=== PATIENT | male | born 1975 | race American Indian/Alaskan Native ===

== ENCOUNTER 2019-12-15 13:36 | Inpatient (IN) | payer MEDICAID ==
[2019-12-15 18:39] LABS: Basophils % (Auto) 0.6 % (0.0-1.8); Eosinophils # (Auto) 0.2 K/mm3 (0.0-0.4); Eosinophils % (Auto) 2.9 % (0.0-4.3); Hematocrit 28.1 % (35.5-45.6); Hemoglobin 9.4 gm/dl (11.8-15.2); Lymphocytes # (Auto) 1.5 K/mm3 (1.2-5.4); Lymphocytes % (Auto) 17.9 % (13.4-35.0); Mean Corpuscular HGB Conc 34 % (32-34); Mean Corpuscular Volume 90 fl (84-94); Monocytes # (Auto) 0.9 K/mm3 (0.0-0.8); Monocytes % (Auto) 10.9 % (0.0-7.3); Platelet Count 349 K/mm3 (140-440); Red Blood Count 3.12 M/mm3 (3.65-5.03); Red Cell Distribution Width 15.4 % (13.2-15.2)
--- NOTE | 2019-12-15 19:07 | Emergency Department Report ---
ED Shortness of Breath HPI - General Chief Complaint: Recheck/Abnormal Lab/Rx Stated Complaint: STARTING DIALYSIS Time Seen by Provider: 12/15/19 17:59 Source: patient Mode of arrival: Ambulatory Limitations: No Limitations - History of Present Illness Initial Comments: CC: "I need dialysis." HPI: Mr. Bahena is a 60-year-old male with history of diabetes mellitus, hypertension, end-stage renal disease who presents with shortness of breath leg swelling. He was evaluated by his primary rice drier operator Dr. Penny this morning. Outpatient chest radiograph was unremarkable according to his report. He was instructed to go to the emergency department for hemodialysis. Dialysis graft was planned to be inserted to his right arm on tomorrow. He does not have dialysis access. He denies nausea. He has mild headache. Denies chest pain. MD Complaint: shortness of breath -: Gradual, days(s) (Several days) Severity: moderate Consistency: constant Improves With: rest Worsens With: exertion Known History Of: other (End-stage renal disease) Context: other (Evaluated by rice drier operator today. History of end-stage renal disease.) - Related Data Home Medications Medication Instructions Recorded Confirmed Last Taken Gabapentin [Neurontin] 100 mg PO Q8HR 12/14/19 12/14/19 Unknown amLODIPine [Norvasc] 10 mg PO DAILY 12/14/19 12/14/19 Unknown Allergies Allergy/AdvReac Type Severity Reaction Status Date / Time No Known Allergies Allergy Unverified 12/14/19 11:41 ED Review of Systems ROS: Stated complaint: STARTING DIALYSIS Other details as noted in HPI Comment: All other systems reviewed and negative Constitutional: denies: fever Respiratory: shortness of breath. denies: cough Cardiovascular: denies: chest pain Gastrointestinal: denies: abdominal pain, nausea, vomiting Neurological: headache ED Past Medical Hx - Past Medical History Previous Medical History?: Yes Hx Hypertension: Yes Hx Diabetes: Yes Hx GERD: Yes Hx Renal Disease: Yes Hx Headaches / Migraines: Yes (Migraines) - Social History Smoking Status: Former Smoker - Medications Home Medications: Home Medications Medication Instructions Recorded Confirmed Last Taken Type Gabapentin [Neurontin] 100 mg PO Q8HR 12/14/19 12/14/19 Unknown History amLODIPine [Norvasc] 10 mg PO DAILY 12/14/19 12/14/19 Unknown History ED Physical Exam - General Limitations: No Limitations General appearance: alert, in no apparent distress - Head Head exam: Present: atraumatic, normocephalic - Eye Eye exam: Present: normal appearance - ENT ENT exam: Present: mucous membranes moist - Neck Neck exam: Present: normal inspection, full ROM - Respiratory Respiratory exam: Present: normal lung sounds bilaterally, other (Diminished lung sounds right lung base posterior region of the thorax). Absent: wheezes, rales, rhonchi - Cardiovascular Cardiovascular Exam: Present: regular rate, normal rhythm, normal heart sounds. Absent: systolic murmur, diastolic murmur, rubs, gallop - GI/Abdominal GI/Abdominal exam: Present: soft, normal bowel sounds. Absent: distended, tenderness, guarding, rebound - Rectal Rectal exam: Present: deferred - Extremities Exam Extremities exam: Present: pedal edema - Neurological Exam Neurological exam: Present: alert, oriented X3 - Psychiatric Psychiatric exam: Present: normal affect, normal mood - Skin Skin exam: Present: warm, dry, intact, normal color. Absent: rash ED Course Vital Signs 12/15/19 14:33 Pulse Rate 84 Respiratory 18 Rate Blood Pressure 153/82 O2 Sat by Pulse 100 Oximetry ED Medical Decision Making - Lab Data Result diagrams: 12/15/19 18:05 12/15/19 18:05 Laboratory Results - last 24 hr 12/15/19 12/15/19 18:05 18:05 WBC 8.4 RBC 3.12 L Hgb 9.4 L Hct 28.1 L MCV 90 MCH 30 MCHC 34 RDW 15.4 H Plt Count 349 Lymph % (Auto) 17.9 [place] % (Auto) 10.9 H Eos % (Auto) 2.9 Baso % (Auto) 0.6 Lymph # (Auto) 1.5 [place] # (Auto) 0.9 H Eos # (Auto) 0.2 Baso # (Auto) 0.0 Seg Neutrophils % 67.7 Seg Neutrophils # 5.7 Sodium 136 L Potassium 4.7 Chloride 103.1 Carbon Dioxide 13 L Anion Gap 25 BUN 84 H Creatinine 13.0 H Estimated GFR 5 BUN/Creatinine Ratio 6 Glucose 130 H Calcium 8.0 L - Radiology Data Radiology results: report reviewed, image reviewed Chest radiograph: Possible small bilateral effusions versus atelectasis. - Medical Decision Making Mr. Bahena presents with uremic complications: Hypervolemia, acidosis. Symptomatically he has shortness of breath and lower extremity swelling. I consulted Dr. Gan rice drier operator on-call for Dr. Penny who recommended [facility] for urgent dialysis. I consulted vascular surgeon Dr. Isacc De León for vascular access. Patient is admitted to the hospital service. Critical care attestation.: If time is entered above; I have spent that time in minutes in the direct care of this critically ill patient, excluding procedure time. ED Disposition Clinical Impression: End stage renal disease, Hypervolemia, Metabolic acidosis Disposition: OP ADMIT IP TO THIS HOSP Is pt being admited?: Yes Does the pt Need Aspirin: No Condition: Stable
--- NOTE | 2019-12-15 19:09 | XRay Report ---
CHEST 1 VIEW 6:55 PM INDICATION: dyspnea. COMPARISON: Earlier the same day FINDINGS: Support devices: None. Heart: Stable. Lungs/Pleura: Previously seen predominantly perihilar opacities have improved. No significant effusio n. No pneumothorax. IMPRESSION: 1. Interval improvement. Signer Name: Chris Barrios MD Signed: 12/15/2019 7:05 PM Workstation Name: [id number]
--- NOTE | 2019-12-15 23:55 | History and Physical Report ---
History of Present Illness Date of examination: 12/15/19 Date of admission: 12/15/19 19:07 Chief complaint: Increasing swelling of both the legs and shortness of breath for 1 week History of present illness: 44-year-old male with history of hypertension diabetes and chronic kidney disease comes in for increasing shortness of breath and swelling of both lower extremities. Patient went to his carbon brusher assembler Dr. Penny this morning and because of his shortness of breath and swelling in both lower extremities patient was sent to the emergency room for evaluation. Patient has orthopnea. Patient has shortness of breath on minimal exertion. No chest pain. Patient has chronic kidney disease which was diagnosed about 6 months ago and has been following with nephrology on a regular basis. Worsening creatinine and kidney function. In the emergency room patient had swelling of both lower extremities and a high creatinine of around 13. No fever or chills. Exercise is a exacerbating factor and rest is a relieving factor - Past Medical History Previous Medical History?: Yes Hypertension: Yes Diabetes: Yes GERD: Yes Renal Disease: Yes Headaches / Migraines: Yes (Migraines) - Social History Smoking Status: Former Smoker Surgical history none Family history Hypertension - Medications Home Medications: Home Medications Medication Instructions Recorded Confirmed Last Taken Type Gabapentin [Neurontin] 100 mg PO Q8HR 12/14/19 12/14/19 Unknown History amLODIPine [Norvasc] 10 mg PO DAILY 12/14/19 12/14/19 Unknown History Review of Systems ROS: Stated complaint: STARTING DIALYSIS Other details as noted in HPI Comment: All other systems reviewed and negative Constitutional: denies: fever Respiratory: shortness of breath. denies: cough Cardiovascular: denies: chest pain Gastrointestinal: denies: abdominal pain, nausea, vomiting Neurological: headache Medications and Allergies Allergies Allergy/AdvReac Type Severity Reaction Status Date / Time No Known Allergies Allergy Unverified 12/14/19 11:41 Home Medications Medication Instructions Recorded Confirmed Last Taken Type Gabapentin [Neurontin] 100 mg PO Q8HR 12/14/19 12/15/19 12/15/19 History amLODIPine [Norvasc] 10 mg PO DAILY 12/14/19 12/15/19 12/15/19 History Exam - Constitutional Vitals: Temp Pulse Resp BP Pulse Ox 89 15 161/86 100 12/15/19 19:16 12/15/19 19:16 12/15/19 19:16 12/15/19 19:16 General appearance: Present: no acute distress, mild distress, well-nourished - EENT Eyes: Present: PERRL ENT: hearing intact, clear oral mucosa - Neck Neck: Present: supple, normal ROM - Respiratory Respiratory effort: normal Respiratory: bilateral: CTA - Cardiovascular Heart rate: 88 Rhythm: regular Heart Sounds: Present: S1 & S2. Absent: rub, click - Extremities Extremities: pulses symmetrical Extremity abnormal: edema (3+ pedal edema) Peripheral Pulses: within normal limits - Abdominal General gastrointestinal: Present: soft, non-tender, non-distended, normal bowel sounds Male genitourinary: Present: normal - Integumentary Integumentary: Present: clear, warm, dry - Musculoskeletal Musculoskeletal: gait normal, strength equal bilaterally - Psychiatric Psychiatric: appropriate mood/affect, intact judgment & insight - Neurologic Neurologic: CNII-XII intact, moves all extremities HEART Score - HEART Score History: Moderately suspicious Age: < 45 Risk factors: 1-2 risk factors Troponin: 1-3x normal limit - Critical Actions Critical Actions: 4-6 pts:12-16.6% risk of adverse cardiac event. Should be admitted Results - Labs CBC & Chem 7: 12/15/19 18:05 12/15/19 18:05 Labs: Laboratory Last Values WBC 8.4 K/mm3 (4.5-11.0) 12/15/19 18:05 RBC 3.12 M/mm3 (3.65-5.03) L 12/15/19 18:05 Hgb 9.4 gm/dl (11.8-15.2) L 12/15/19 18:05 Hct 28.1 % (35.5-45.6) L 12/15/19 18:05 MCV 90 fl (84-94) 12/15/19 18:05 MCH 30 pg (28-32) 12/15/19 18:05 MCHC 34 % (32-34) 12/15/19 18:05 RDW 15.4 % (13.2-15.2) H 12/15/19 18:05 Plt Count 349 K/mm3 (140-440) 12/15/19 18:05 Lymph % (Auto) 17.9 % (13.4-35.0) 12/15/19 18:05 [place] % (Auto) 10.9 % (0.0-7.3) H 12/15/19 18:05 Eos % (Auto) 2.9 % (0.0-4.3) 12/15/19 18:05 Baso % (Auto) 0.6 % (0.0-1.8) 12/15/19 18:05 Lymph # (Auto) 1.5 K/mm3 (1.2-5.4) 12/15/19 18:05 [place] # (Auto) 0.9 K/mm3 (0.0-0.8) H 12/15/19 18:05 Eos # (Auto) 0.2 K/mm3 (0.0-0.4) 12/15/19 18:05 Baso # (Auto) 0.0 K/mm3 (0.0-0.1) 12/15/19 18:05 Seg Neutrophils % 67.7 % (40.0-70.0) 12/15/19 18:05 Seg Neutrophils # 5.7 K/mm3 (1.8-7.7) 12/15/19 18:05 Sodium 136 mmol/L (137-145) L 12/15/19 18:05 Potassium 4.7 mmol/L (3.6-5.0) 12/15/19 18:05 Chloride 103.1 mmol/L (98-107) 12/15/19 18:05 Carbon Dioxide 13 mmol/L (22-30) L 12/15/19 18:05 Anion Gap 25 mmol/L 12/15/19 18:05 BUN 84 mg/dL (9-20) H 12/15/19 18:05 Creatinine 13.0 mg/dL (0.8-1.3) H 12/15/19 18:05 Estimated GFR 5 ml/min 12/15/19 18:05 BUN/Creatinine Ratio 6 % 12/15/19 18:05 Glucose 130 mg/dL (75-100) H 12/15/19 18:05 POC Glucose 141 mg/dL (70-105) H 12/15/19 21:43 Calcium 8.0 mg/dL (8.4-10.2) L 12/15/19 18:05 Short CBC 12/15/19 Range/Units 18:05 WBC 8.4 (4.5-11.0) K/mm3 Hgb 9.4 L (11.8-15.2) gm/dl Hct 28.1 L (35.5-45.6) % Plt Count 349 (140-440) K/mm3 [facility] 12/15/19 18:05 Sodium 136 L Potassium 4.7 Chloride 103.1 Carbon Dioxide 13 L BUN 84 H Creatinine 13.0 H Glucose 130 H Calcium 8.0 L - Imaging and Cardiology EKG: report reviewed (Sinus rhythm heart rate of 90/min no acute ST-T wave cordova es LVH by voltage criteria) Chest x-ray: report reviewed Imaging and Cardiology: Chest x-ray Previously seen predominantly perihilar opacities are improved. No significant effusion. No pneumothorax. Impression interval improvement. Dee/IV: Voiding Method Toilet IV Catheter Type [Right Hand] INT / Saline Lock Assessment and Plan Advance Directives: Yes (Full code) VTE prophylaxis?: Chemical Plan of care discussed with patient/family: Yes - Patient Problems (1) Acute exacerbation of CHF (congestive heart failure) Current Visit: Yes Status: Acute Qualifiers: Heart failure type: diastolic Qualified Code(s): I50.33 - Acute on chronic diastolic (congestive) heart failure Plan to address problem: Secondary to volume overload Echocardiogram for ejection fraction IV Lasix for now Patient is still urinating Creatinine is very high Needs Vas-Cath and increase ultrafiltration for volume removal (2) End stage renal disease Current Visit: Yes Status: Chronic Plan to address problem: Patient is in end-stage renal disease Needs a Vas-Cath and hemodialysis for increased ultrafiltration (3) Anemia Current Visit: Yes Status: Chronic Qualifiers: Anemia type: due to chronic kidney disease Chronic kidney disease stage: stage 5, not on chronic dialysis Qualified Code(s): N18.5 - Chronic kidney disease, stage 5; D63.1 - Anemia in chronic kidney disease Plan to address problem: Anemia secondary to chronic kidney disease We will defer to nephrology regarding Epogen (4) Metabolic acidosis Current Visit: Yes Status: Acute Plan to address problem: Secondary to end-stage renal disease (5) Hyponatremia Current Visit: Yes Status: Acute Plan to address problem: Mild Should correct with hemodialysis (6) Hypertension Current Visit: Yes Status: Chronic Qualifiers: Hypertension type: essential hypertension Qualified Code(s): I10 - Essential (primary) hypertension Plan to address problem: Continue antihypertensives and adjust medications as necessary (7) Type 2 diabetes mellitus Current Visit: Yes Status: Chronic Plan to address problem: Coverage for now Check hemoglobin A1c (8) DVT prophylaxis Current Visit: Yes Status: Acute Plan to address problem: On heparin and GI prophylaxis
[2019-12-15] MEDS ORDERED: ACETAMINOPHEN 325 MG TAB PO PRN (23:57)
[2019-12-15] MEDS ORDERED: ONDANSETRON 4 MG/2 ML INJ IV PRN (23:57)
[2019-12-15] MEDS ORDERED: HYDROmorphone 1 MG/1 ML INJ IV PRN (23:57)
[2019-12-16] MEDS ORDERED: HEPARIN 5,000 UNIT/1 ML VIAL SUB-Q SCH (00:15)
[2019-12-16] MEDS: GABAPENTIN 100 MG CAP PO SCH ×4 (00:58→22:44)
[2019-12-16] MEDS: oxyCODONE /ACETAMINOPHEN 5-325MG TAB PO PRN (00:58)
[2019-12-16] MEDS: FUROSEMIDE 40 MG/4 ML INJ IV SCH ×2 (05:17→18:55)
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
[2019-12-16] MEDS ORDERED: SODIUM CHLORIDE 0.9% 100 ML IV PRN ×2 (09:00→09:18)
[2019-12-16] MEDS ORDERED: POTASSIUM CHLORIDE ER 20 MEQ TAB PO SCH (10:00)
[2019-12-16 10:36] LABS: Basophils # (Auto) 0.2 K/mm3 (0.0-0.1); Basophils % (Auto) 2.7 % (0.0-1.8); Eosinophils # (Auto) 0.4 K/mm3 (0.0-0.4); Eosinophils % (Auto) 5.1 % (0.0-4.3); Hemoglobin 8.7 gm/dl (11.8-15.2); Lymphocytes # (Auto) 1.3 K/mm3 (1.2-5.4); Lymphocytes % (Auto) 17.2 % (13.4-35.0); Mean Corpuscular HGB Conc 33 % (32-34); Mean Corpuscular Volume 90 fl (84-94); Monocytes # (Auto) 0.8 K/mm3 (0.0-0.8); Platelet Count 306 K/mm3 (140-440); Red Cell Distribution Width 15.2 % (13.2-15.2)
[2019-12-16] MEDS: FAMOTIDINE 20 MG TAB PO SCH (10:54)
[2019-12-16] MEDS: amLODIPine 10 MG TAB PO SCH (10:55)
[2019-12-16] MEDS: HEPARIN 5,000 UNIT/1 ML VIAL SUB-Q SCH ×2 (10:56→22:44)
[2019-12-16 11:00] LABS: Alanine Aminotransferase 14 units/L (7-56); Albumin 3.1 g/dL (3.9-5); Blood Urea Nitrogen 85 mg/dL (9-20); Calcium 7.7 mg/dL (8.4-10.2); Hemolysis Index 2
[2019-12-16 11:07] LABS: BUN/Creatinine Ratio 6
[2019-12-16 11:10] LABS: Hepatitis B Surface Antigen Non-Reactive (Negative); Hepatitis C Virus Antibody Non-Reactive (NonReactive)
[2019-12-16] MEDS ORDERED: MIDAZOLAM 2 MG/2 ML INJ ONE (14:02)
[2019-12-16] MEDS ORDERED: fentaNYL 100 MCG/2 ML INJ ONE (14:02)
[2019-12-16] MEDS ORDERED: SODIUM CHLORIDE 0.9% 250ML 250 ML ONE (14:03)
[2019-12-16] MEDS ORDERED: HEPARIN 10,000 UNITS/10 ML VIAL ONE (14:03)
[2019-12-16] MEDS ORDERED: HEPARIN/NS 5000 UNIT/500ML 500 ML IR ONE (14:03)
[2019-12-16] MEDS: LIDOCAINE (2%) 20 MG/1 ML VIAL 20 ML MDV INFILTRATI ONE ×2 (14:45→14:46)
--- NOTE | 2019-12-16 14:59 | Post Operative Note ---
Date of procedure: 12/16/19 Pre-op diagnosis: ESRD Post-op diagnosis: same Procedure: Right IJ Permcath Insertion Anesthesia: MAC, local Surgeon: BILLIE HIGUERA Estimated blood loss: minimal Pathology: none Condition: stable Disposition: floor
--- NOTE | 2019-12-16 16:04 | Operative Report ---
STAFF SURGEON: Dr. Sb Mace. PREOPERATIVE DIAGNOSIS: End-stage renal disease. POSTOPERATIVE DIAGNOSIS: End-stage renal disease. PROCEDURE PERFORMED: Right IJ PermCath insertion. COMPLICATIONS: None. ESTIMATED BLOOD LOSS: Less than 10 mL. ANESTHESIA: Local MAC. INDICATIONS FOR PROCEDURE: This is a 44-year-old gentleman with stage V chronic kidney disease, who has now progressed to end-stage renal disease, in need of a dialysis initiation. The patient was scheduled to undergo AV graft placement; however, in [facility] was noted to be dyspneic on exertion concerning for fluid overload, in need of dialysis. Therefore, the patient's operation was pushed back and per Nephrology was to get a catheter insertion for dialysis initiation. The patient was explained the risks, benefits and alternatives of procedure, expressed understanding and wished to proceed. DESCRIPTION OF PROCEDURE: After appropriate consent was obtained, the patient was brought back to the laborer petroleum refinery, placed on the table in supine position. The right neck and chest were prepped and draped in usual sterile fashion with ChloraPrep. Appropriate time-out performed indicating correct patient, procedure, and site of the procedure. We then began the intervention by obtaining percutaneous access of the right internal jugular vein using a micropuncture technique under ultrasound guidance. Once we obtained access, needle was exchanged for a micropuncture sheath using Seldinger technique. We then proceeded to place a stiff J wire into the inferior vena cava. The sheath was removed. A stab incision was made on the anterior chest wall. A 23 cm straight PermCath was then tunneled subcutaneously into the access site. The access site was then serially dilated appropriately. Then, a sheath and dilator was placed over the wire into the SVC. The dilator and wire were removed. Catheter was placed through the peel-away sheath with the tip of the catheter at the SVC right atrial junction. The peel-away sheath was removed. Both lumens eliane blood appropriately, were flushed with heparinized saline. Appropriate amount of heparin was placed in each port. The access site was then closed with deep subcutaneous layer with 3-0 Vicryl and skin was approximated with 3-0 nylon. The catheter exit site was sutured in place with 3-0 nylon. Appropriate dressing was placed. The patient tolerated the procedure well, emerged from the conscious sedation and was sent to recovery in stable condition. [facility]# [id number] SARAH/ADELSO FOSTER
--- NOTE | 2019-12-16 18:52 | Consultation ---
History of Present Illness Consult date: 12/16/19 Consult reason: congestive heart failure History of present illness: The patient is a 44-year-old man with a history of hypertension, diabetes and chronic kidney failure. There is no prior cardiac history. He states that over the past several months his kidney function has been being monitored by the parts washer and has been progressively worsening. Over the past several weeks he has developed lower extremity edema and progressive exertional dyspnea. Yesterday, his parts washer saw that his creatinine had risen to 13, he was fluid overloaded, suggested that he should be admitted for dialysis to be initiated. Today he underwent placement of a left subclavian dialysis catheter and has received his first dialysis treatment. He has no chest pain, no palpitations and no prior cardiac work-up. Twelve-lead ECG is not available in the chart for review, but on threat monitoring analyst he is in sinus rhythm. Chest x-ray reveals a normal-sized cardiac silhouette, no significant interstitial edema or heart failure. Past History Past Medical History: diabetes, ESRD, hypertension Medications and Allergies Allergies Allergy/AdvReac Type Severity Reaction Status Date / Time No Known Allergies Allergy Unverified 12/14/19 11:41 Home Medications Medication Instructions Recorded Confirmed Last Taken Type Gabapentin [Neurontin] 100 mg PO Q8HR 12/14/19 12/15/19 12/15/19 History amLODIPine [Norvasc] 10 mg PO DAILY 12/14/19 12/15/19 12/15/19 History Active Meds: Active Medications Acetaminophen (Tylenol) 650 mg PO Q4H PRN PRN Reason: Pain MILD(1-3)/Fever >100.5/SCHMID Amlodipine Besylate (Amlodipine) 10 mg PO DAILY [facility] Last Admin: 12/16/19 10:55 Dose: 10 mg Documented by: Famotidine (Pepcid) 20 mg PO QAM [facility] Last Admin: 12/16/19 10:54 Dose: 20 mg Documented by: Furosemide (Lasix) 40 mg IV 0600,1800 [facility] Last Admin: 12/16/19 05:17 Dose: 40 mg Documented by: Gabapentin (Gabapentin) 100 mg PO Q8HR [facility] Last Admin: 12/16/19 14:20 Dose: Not Given Documented by: Heparin Sodium (Porcine) (Heparin) 5,000 unit SUB-Q Q12HR [facility] Last Admin: 12/16/19 10:56 Dose: 5,000 unit Documented by: Hydromorphone HCl (Dilaudid) 0.5 mg IV Q3H PRN PRN Reason: Pain , Severe (7-10) Sodium Chloride (Nacl 0.9%) 100 mls @ 999 mls/hr IV TATIANNA PRN PRN Reason: Hypotension Ondansetron HCl (Zofran) 4 mg IV Q8H PRN PRN Reason: Nausea And Vomiting Oxycodone/Acetaminophen (Percocet 5/325) 1 tab PO Q6H PRN PRN Reason: Pain, Moderate (4-6) Last Admin: 12/16/19 00:58 Dose: 1 tab Documented by: Sodium Chloride (Sodium Chloride Flush Syringe 10 Ml) 10 ml IV BID [facility] Last Admin: 12/16/19 10:56 Dose: 10 ml Documented by: Sodium Chloride (Sodium Chloride Flush Syringe 10 Ml) 10 ml IV PRN PRN PRN Reason: LINE FLUSH Review of Systems Cardiovascular: edema, shortness of breath, no chest pain, no orthopnea, no palpitations, no rapid/irregular heart beat, no syncope, no lightheadedness Physical Examination Vital Signs Pulse Resp BP Pulse Ox 84 18 153/82 100 12/15/19 14:33 12/15/19 14:33 12/15/19 14:33 12/15/19 14:33 General appearance: no acute distress HEENT: Positive: PERRL Neck: Positive: neck supple Cardiac: Positive: Reg Rate and Rhythm Lungs: Positive: Decreased Breath Sounds Neuro: Positive: Grossly Intact Abdomen: Positive: Soft Male genitourinary: Positive: deferred Skin: Positive: Clear Extremities: Present: +1 Edema Results 12/16/19 10:09 12/16/19 10:09 Cardiac Enzymes 12/16/19 Range/Units 10:09 AST 12 (5-40) units/L CBC 12/16/19 Range/Units 10:09 WBC 7.7 (4.5-11.0) K/mm3 RBC 2.90 L (3.65-5.03) M/mm3 Hgb 8.7 L (11.8-15.2) gm/dl Hct 26.0 L (35.5-45.6) % Plt Count 306 (140-440) K/mm3 Lymph # (Auto) 1.3 (1.2-5.4) K/mm3 [place]ee # (Auto) 0.8 (0.0-0.8) K/mm3 Eos # (Auto) 0.4 (0.0-0.4) K/mm3 Baso # (Auto) 0.2 H (0.0-0.1) K/mm3 Comprehensive Metabolic Panel 12/15/19 12/16/19 Range/Units 18:05 10:09 Sodium 136 L 138 (137-145) mmol/L Potassium 4.7 4.5 (3.6-5.0) mmol/L Chloride 103.1 107.2 H (98-107) mmol/L Carbon Dioxide 13 L 14 L (22-30) mmol/L BUN 84 H 85 H (9-20) mg/dL Creatinine 13.0 H 13.2 H (0.8-1.3) mg/dL Glucose 130 H 149 H (75-100) mg/dL Calcium 8.0 L 7.7 L (8.4-10.2) mg/dL AST 12 (5-40) units/L ALT 14 (7-56) units/L Alkaline Phosphatase 68 (35-129) units/L Total Protein 6.1 L (6.3-8.2) g/dL Albumin 3.1 L (3.9-5) g/dL EKG interpretations - Telemetry EKG Rhythm: Sinus Rhythm Assessment and Plan - Patient Problems (1) Volume overload Current Visit: Yes Status: Acute Plan to address problem: Patient presents with volume overload likely due to end-stage renal failure. Dialysis has been initiated for fluid management. In addition to a 12-lead EKG, we will order an echocardiogram for left ventricular function and valvular function assessment. Further cardiac management will depend on clinical course.
--- NOTE | 2019-12-16 23:02 | Progress Note ---
Assessment and Plan - Patient Problems (1) Acute exacerbation of CHF (congestive heart failure) Current Visit: Yes Status: Acute Qualifiers: Heart failure type: diastolic Qualified Code(s): I50.33 - Acute on chronic diastolic (congestive) heart failure Plan to address problem: Secondary to volume overload Echocardiogram for ejection fraction IV Lasix for now Patient is still urinating Creatinine is very high Needs Vas-Cath and increase ultrafiltration for volume removal (2) End stage renal disease Current Visit: Yes Status: Chronic Plan to address problem: Patient is in end-stage renal disease Needs a Vas-Cath and hemodialysis for increased ultrafiltration (3) Anemia Current Visit: Yes Status: Chronic Qualifiers: Anemia type: due to chronic kidney disease Chronic kidney disease stage: stage 5, not on chronic dialysis Qualified Code(s): N18.5 - Chronic kidney disease, stage 5; D63.1 - Anemia in chronic kidney disease Plan to address problem: Anemia secondary to chronic kidney disease We will defer to nephrology regarding Epogen (4) Metabolic acidosis Current Visit: Yes Status: Acute Plan to address problem: Secondary to end-stage renal disease (5) Hyponatremia Current Visit: Yes Status: Acute Plan to address problem: Mild Should correct with hemodialysis (6) Hypertension Current Visit: Yes Status: Chronic Qualifiers: Hypertension type: essential hypertension Qualified Code(s): I10 - Essential (primary) hypertension Plan to address problem: Continue antihypertensives and adjust medications as necessary (7) Type 2 diabetes mellitus Current Visit: Yes Status: Chronic Plan to address problem: Coverage for now Check hemoglobin A1c (8) DVT prophylaxis Current Visit: Yes Status: Acute Plan to address problem: On heparin and GI prophylaxis Subjective Date of service: 12/16/19 Principal diagnosis: CHF,ESRD needing HD Interval history: 44-year-old male with history of hypertension diabetes and chronic kidney disease comes in for increasing shortness of breath and swelling of both lower extremities. Patient went to his spike machine operator Dr. Penny this morning and because of his shortness of breath and swelling in both lower extremities patient was sent to the emergency room for evaluation. Patient has orthopnea. Patient has shortness of breath on minimal exertion. No chest pain. Patient has chronic kidney disease which was diagnosed about 6 months ago and has been following with nephrology on a regular basis. Worsening creatinine and kidney function. In the emergency room patient had swelling of both lower extremities and a high creatinine of around 13. No fever or chills. Exercise is a exacerbating factor and rest is a relieving factor Objective - Constitutional Vitals: Vital Signs - 12hr 12/16/19 12/16/19 12/16/19 11:51 15:15 15:20 Temperature 97.9 F 97.2 F L Pulse Rate 88 81 81 Respiratory 18 16 Rate Blood Pressure 153/74 159/86 152/90 Blood Pressure [Right] O2 Sat by Pulse 96 Oximetry 12/16/19 12/16/19 12/16/19 15:30 15:45 16:00 Temperature Pulse Rate 81 81 81 Respiratory Rate Blood Pressure 163/89 156/84 162/88 Blood Pressure [Right] O2 Sat by Pulse Oximetry 12/16/19 12/16/19 12/16/19 16:15 16:30 16:45 Temperature Pulse Rate 82 86 84 Respiratory Rate Blood Pressure 158/82 166/93 177/89 Blood Pressure [Right] O2 Sat by Pulse Oximetry 12/16/19 12/16/19 12/16/19 17:00 17:15 17:30 Temperature 98.8 F Pulse Rate 84 85 86 Respiratory 18 Rate Blood Pressure 163/92 186/101 187/98 Blood Pressure [Right] O2 Sat by Pulse Oximetry 12/16/19 12/16/19 21:08 22:42 Temperature 98.2 F Pulse Rate 88 87 Respiratory 16 Rate Blood Pressure 176/92 Blood Pressure 168/89 [Right] O2 Sat by Pulse 98 Oximetry General appearance: Present: no acute distress, well-nourished - EENT Eyes: PERRL, EOM intact ENT: hearing intact, clear oral mucosa Ears: bilateral: normal - Neck Neck: supple, normal ROM - Respiratory Respiratory effort: normal Respiratory: bilateral: CTA - Breasts Breasts: normal - Cardiovascular Rhythm: regular Heart Sounds: Present: S1 & S2. Absent: gallop, rub Extremities: pulses intact, No edema, normal color, Full ROM - Gastrointestinal General gastrointestinal: Present: soft, non-tender, non-distended, normal bowel sounds - Genitourinary Male genitourinary: normal - Integumentary Integumentary: clear, warm, dry - Musculoskeletal Musculoskeletal: 1, strength equal bilaterally - Neurologic Neurologic: moves all extremities - Psychiatric Psychiatric: memory intact, appropriate mood/affect, intact judgment & insight - Labs CBC & Chem 7: 12/16/19 10:09 12/16/19 10:09 Labs: Abnormal lab results 12/16/19 12/16/19 Range/Units 10:09 10:09 RBC 2.90 L (3.65-5.03) M/mm3 Hgb 8.7 L (11.8-15.2) gm/dl Hct 26.0 L (35.5-45.6) % Yates % (Auto) 11.0 H (0.0-7.3) % Eos % (Auto) 5.1 H (0.0-4.3) % Baso % (Auto) 2.7 H (0.0-1.8) % Baso # (Auto) 0.2 H (0.0-0.1) K/mm3 Chloride 107.2 H (98-107) mmol/L Carbon Dioxide 14 L (22-30) mmol/L BUN 85 H (9-20) mg/dL Creatinine 13.2 H (0.8-1.3) mg/dL Glucose 149 H (75-100) mg/dL Calcium 7.7 L (8.4-10.2) mg/dL Total Protein 6.1 L (6.3-8.2) g/dL Albumin 3.1 L (3.9-5) g/dL HEART Score - HEART Score Age: < 45 Risk factors: 1-2 risk factors Troponin: 1-3x normal limit - Critical Actions Critical Actions: 4-6 pts:12-16.6% risk of adverse cardiac event. Should be admitted
[2019-12-17] MEDS: GABAPENTIN 100 MG CAP PO SCH ×2 (05:29→22:51)
[2019-12-17] MEDS: FUROSEMIDE 40 MG/4 ML INJ IV SCH ×2 (05:29→22:51)
[2019-12-17 06:17] LABS: Calcium 7.4 mg/dL (8.4-10.2)
--- NOTE | 2019-12-17 07:33 | Consultation ---
History of Present Illness - Reason for Consult Consult date: 12/17/19 end stage renal disease, metabolic acidosis - History of Present Illness This is a 44-year-old man with chronic kidney disease, diabetes and hypertension who was scheduled for a fistula placement but due to shortness of breath was sent to the emergency department where lab work was notable for severe acidosis. Nephrology was consulted for further management. Past History Past Medical History: diabetes, ESRD, hypertension Medications and Allergies Allergies Allergy/AdvReac Type Severity Reaction Status Date / Time No Known Allergies Allergy Unverified 12/14/19 11:41 Home Medications Medication Instructions Recorded Confirmed Last Taken Type Gabapentin [Neurontin] 100 mg PO Q8HR 12/14/19 12/15/19 12/15/19 History amLODIPine [Norvasc] 10 mg PO DAILY 12/14/19 12/15/19 12/15/19 History Active Meds: Active Medications Acetaminophen (Tylenol) 650 mg PO Q4H PRN PRN Reason: Pain MILD(1-3)/Fever >100.5/SCHMID Amlodipine Besylate (Amlodipine) 10 mg PO DAILY [facility] Last Admin: 12/16/19 10:55 Dose: 10 mg Documented by: Famotidine (Pepcid) 20 mg PO QAM [facility] Last Admin: 12/16/19 10:54 Dose: 20 mg Documented by: Furosemide (Lasix) 40 mg IV 0600,1800 [facility] Last Admin: 12/17/19 05:29 Dose: 40 mg Documented by: Gabapentin (Gabapentin) 100 mg PO Q8HR [facility] Last Admin: 12/17/19 05:29 Dose: 100 mg Documented by: Heparin Sodium (Porcine) (Heparin) 5,000 unit SUB-Q Q12HR [facility] Last Admin: 12/16/19 22:44 Dose: 5,000 unit Documented by: Hydromorphone HCl (Dilaudid) 0.5 mg IV Q3H PRN PRN Reason: Pain , Severe (7-10) Sodium Chloride (Nacl 0.9%) 100 mls @ 999 mls/hr IV TATIANNA PRN PRN Reason: Hypotension Sodium Chloride (Nacl 0.9%) 100 mls @ 999 mls/hr IV TATIANNA PRN PRN Reason: Hypotension Ondansetron HCl (Zofran) 4 mg IV Q8H PRN PRN Reason: Nausea And Vomiting Oxycodone/Acetaminophen (Percocet 5/325) 1 tab PO Q6H PRN PRN Reason: Pain, Moderate (4-6) Last Admin: 12/16/19 00:58 Dose: 1 tab Documented by: Sodium Chloride (Sodium Chloride Flush Syringe 10 Ml) 10 ml IV BID GARY Last Admin: 12/16/19 22:44 Dose: 10 ml Documented by: Sodium Chloride (Sodium Chloride Flush Syringe 10 Ml) 10 ml IV PRN PRN PRN Reason: LINE FLUSH Exam - Vital Signs Vital signs: Vital Signs Pulse Resp BP Pulse Ox 84 18 153/82 100 12/15/19 14:33 12/15/19 14:33 12/15/19 14:33 12/15/19 14:33 - Physical Exam Narrative exam: Vitals: Reviewed General: No acute distress HEENT: Oral mucosa moist, no pharyngeal erythema, no evidence of epistaxis Neck: Supple, no evidence of any JVD, trachea midline, no thyromegaly Chest: decreased breath sounds bilaterally Heart: Regular rate and rhythm, S1-S2 heard, no pericardial rub Abdomen: Soft, nontender, no renal bruit, no suprapubic masses no CVA tenderness Extremity: No peripheral cyanosis, 1+ edema Neurological: Alert, awake, no asterixis Dermatology; no skin rashes Back: Nontender thoracolumbar spine, no CVA tenderness Psych: No agitation and aggression Musculoskeletal: No joint effusion noted Results - Lab Results 12/16/19 10:09 12/17/19 05:38 Most recent lab results Calcium 7.4 mg/dL (8.4-10.2) L 12/17/19 05:38 Assessment and Plan assessment * end-stage renal disease * Anemia * Acidosis * Hypertension, uncontrolled * Respiratory distress Recommendations * Initiated hemodialysis, plan to repeat session today * Continue home antihypertensives * Renally dose medications * ESRD diet * check PTH, phosphorus
[2019-12-17] MEDS ORDERED: SODIUM CHLORIDE 0.9% 100 ML IV PRN (08:00)
--- NOTE | 2019-12-17 08:23 | Progress Note ---
Assessment and Plan - Patient Problems (1) Acute exacerbation of CHF (congestive heart failure) Current Visit: Yes Status: Acute Qualifiers: Heart failure type: diastolic Qualified Code(s): I50.33 - Acute on chronic diastolic (congestive) heart failure Plan to address problem: Patient with diastolic heart failure. Ejection fraction 60% the majority of patient's acute respiratory failure secondary to volume overload from renal failure. (2) DVT prophylaxis Current Visit: Yes Status: Acute Plan to address problem: Lovenox. (3) Hyponatremia Current Visit: Yes Status: Acute Plan to address problem: Hyponatremia has resolved electrolytes have been corrected. (4) Metabolic acidosis Current Visit: Yes Status: Acute Plan to address problem: Resolved with hemodialysis. (5) Volume overload Current Visit: Yes Status: Acute Plan to address problem: Patient should be much improved after hemodialysis. Patient may require an additional dialysis as well. We will continue to monitor electrolytes provide supportive care and diuresed with hemodialysis. (6) Anemia Current Visit: Yes Status: Chronic Qualifiers: Anemia type: due to chronic kidney disease Chronic kidney disease stage: stage 5, not on chronic dialysis Qualified Code(s): N18.5 - Chronic kidney disease, stage 5; D63.1 - Anemia in chronic kidney disease Plan to address problem: Chronic anemia secondary to renal failure (7) End stage renal disease Current Visit: Yes Status: Chronic Plan to address problem: Patient to proceed with hemodialysis today. Case management to set up outpatient hemodialysis center. (8) Hypertension Current Visit: Yes Status: Chronic Qualifiers: Hypertension type: essential hypertension Qualified Code(s): I10 - Essential (primary) hypertension Plan to address problem: Patient has fair blood pressure control somewhat suboptimal today. Will reevaluate after hemodialysis. (9) Type 2 diabetes mellitus Current Visit: Yes Status: Chronic Plan to address problem: Patient currently has optimal control blood glucose. 112 130 highest 141. Subjective Date of service: 12/17/19 Principal diagnosis: CHF,ESRD needing HD Interval history: The patient is a 44-year-old man with a history of hypertension, diabetes and chronic kidney failure. There is no prior cardiac history. He states that over the past several months his kidney function has been being monitored by the performing artist and has been progressively worsening. Over the past several weeks he has developed lower extremity edema and progressive exertional dyspnea. Yesterday, his performing artist saw that his creatinine had risen to 13, he was fluid overloaded, suggested that he should be admitted for dialysis to be initiated. Today he underwent placement of a left subclavian dialysis catheter and has received his first dialysis treatment. Patient at present being sent down for hemodialysis today. Hospital course uncomplicated over p.m. Patient to have Vas-Cath in initial hemodialysis. Objective - Constitutional Vitals: Vital Signs - 12hr 12/16/19 12/16/19 12/16/19 21:08 22:00 22:42 Temperature 98.2 F Pulse Rate 88 87 Pulse Rate [ 88 Left Radial] Pulse Rate [ 88 Right Radial] Respiratory 16 18 Rate Blood Pressure 176/92 Blood Pressure 168/89 [Right] O2 Sat by Pulse 98 Oximetry 12/16/19 12/17/19 12/17/19 23:37 00:00 04:40 Temperature 98.6 F 98.4 F Pulse Rate 87 87 84 Pulse Rate [ Left Radial] Pulse Rate [ Right Radial] Respiratory 16 16 Rate Blood Pressure 174/89 171/86 Blood Pressure [Right] O2 Sat by Pulse 99 94 Oximetry 12/17/19 05:35 Temperature Pulse Rate 85 Pulse Rate [ Left Radial] Pulse Rate [ Right Radial] Respiratory Rate Blood Pressure Blood Pressure 157/77 [Right] O2 Sat by Pulse Oximetry General appearance: Present: no acute distress, well-nourished - EENT Eyes: PERRL, EOM intact ENT: hearing intact, clear oral mucosa Ears: bilateral: normal - Neck Neck: supple, normal ROM - Respiratory Respiratory effort: normal Respiratory: bilateral: CTA, rales, rhonchi - Breasts Breasts: normal - Cardiovascular Rhythm: regular Heart Sounds: Present: S1 & S2. Absent: gallop, rub Extremities: pulses intact, No edema, normal color, Full ROM - Gastrointestinal General gastrointestinal: Present: soft, non-tender, non-distended, normal bowel sounds - Genitourinary Male genitourinary: normal - Integumentary Integumentary: clear, warm, dry - Musculoskeletal Musculoskeletal: 1, strength equal bilaterally - Neurologic Neurologic: moves all extremities - Psychiatric Psychiatric: memory intact, appropriate mood/affect, intact judgment & insight - Labs CBC & Chem 7: 12/16/19 10:09 12/17/19 05:38 Labs: Abnormal lab results 10/22/20 10/22/20 10/23/20 Range/Units 10:09 10:09 05:38 RBC 2.90 L (3.65-5.03) M/mm3 Hgb 8.7 L (11.8-15.2) gm/dl Hct 26.0 L (35.5-45.6) % Butts % (Auto) 11.0 H (0.0-7.3) % Eos % (Auto) 5.1 H (0.0-4.3) % Baso % (Auto) 2.7 H (0.0-1.8) % Baso # (Auto) 0.2 H (0.0-0.1) K/mm3 Chloride 107.2 H (98-107) mmol/L Carbon Dioxide 14 L (22-30) mmol/L BUN 85 H 52 H (9-20) mg/dL Creatinine 13.2 H 10.0 H (0.8-1.3) mg/dL Glucose 149 H (75-100) mg/dL Calcium 7.7 L 7.4 L (8.4-10.2) mg/dL Total Protein 6.1 L (6.3-8.2) g/dL Albumin 3.1 L (3.9-5) g/dL HEART Score - HEART Score Age: < 45 Risk factors: 1-2 risk factors Troponin: 1-3x normal limit - Critical Actions Critical Actions: 4-6 pts:12-16.6% risk of adverse cardiac event. Should be admitted
--- NOTE | 2019-12-17 11:10 | Progress Note ---
Assessment and Plan Volume overload ESRD, initiated on dialysis Hypertension Diabetes Plan: Echocardiogram for left ventricular function and valvular function assessment. Subjective Date of service: 12/17/19 Principal diagnosis: CHF,ESRD needing HD Interval history: Patient is resting in bed comfortably. No cardiac complaints. An ECG shows sinus rhythm LVH with repolarization abnormalities. Objective Vital Signs Temp Pulse Pulse Pulse Resp BP BP 12/17/19 05:35 85 157/77 12/17/19 04:40 98.4 F 84 16 171/86 12/17/19 00:00 87 12/16/19 23:37 98.6 F 87 16 174/89 12/16/19 22:42 87 168/89 12/16/19 22:00 88 88 18 12/16/19 21:08 98.2 F 88 16 176/92 12/16/19 17:30 98.8 F 86 18 187/98 12/16/19 17:15 85 186/101 12/16/19 17:00 84 163/92 12/16/19 16:45 84 177/89 12/16/19 16:30 86 166/93 12/16/19 16:15 82 158/82 12/16/19 16:00 81 162/88 12/16/19 15:45 81 156/84 12/16/19 15:30 81 163/89 12/16/19 15:20 81 152/90 12/16/19 15:15 97.2 F L 81 16 159/86 12/16/19 11:51 97.9 F 88 18 153/74 Pulse Ox 12/17/19 05:35 12/17/19 04:40 94 12/17/19 00:00 12/16/19 23:37 99 12/16/19 22:42 12/16/19 22:00 12/16/19 21:08 98 12/16/19 17:30 12/16/19 17:15 12/16/19 17:00 12/16/19 16:45 12/16/19 16:30 12/16/19 16:15 12/16/19 16:00 12/16/19 15:45 12/16/19 15:30 12/16/19 15:20 12/16/19 15:15 12/16/19 11:51 96 - Physical Examination HEENT: Positive: PERRL Neck: Positive: neck supple Neuro: Positive: Grossly Intact Abdomen: Positive: Soft Skin: Positive: Clear Extremities: Present: +1 Edema - Labs and Meds Comprehensive Metabolic Panel 12/16/19 12/17/19 Range/Units 10:09 05:38 Sodium 140 (137-145) mmol/L Potassium 3.9 (3.6-5.0) mmol/L Chloride 105.2 (98-107) mmol/L Carbon Dioxide 22 D (22-30) mmol/L BUN 52 H (9-20) mg/dL Creatinine 13.2 H 10.0 H (0.8-1.3) mg/dL Glucose 79 (75-100) mg/dL Calcium 7.4 L (8.4-10.2) mg/dL - Imaging and Cardiology EKG: report reviewed (Sinus rhythm heart rate of 90/min no acute ST-T wave changes LVH by voltage criteria)
[2019-12-17] MEDS ORDERED: ceFAZolin/STERILE WATER 2 GM/20 ML SYRINGE IV NR (11:15)
[2019-12-17] MEDS: FAMOTIDINE 20 MG TAB PO SCH (11:17)
[2019-12-17] MEDS: amLODIPine 10 MG TAB PO SCH (11:17)
[2019-12-17] MEDS: HEPARIN 5,000 UNIT/1 ML VIAL SUB-Q SCH ×2 (11:18→22:51)
[2019-12-17] MEDS ORDERED: HEPARIN 10,000 UNITS/10 ML VIAL ONE (11:31)
[2019-12-17] MEDS ORDERED: GELATIN SPONGE SIZE 100 TP ONE ×2 (11:32→14:00)
[2019-12-17] MEDS ORDERED: PROTAMINE SULFATE 50 MG/5 ML INJ ONE (11:32)
[2019-12-17] MEDS ORDERED: SODIUM CHLORIDE 0.9% 250ML 250 ML ONE (11:32)
[2019-12-17] MEDS ORDERED: THROMBIN (RECOMBINANT) 5,000 UNIT VIAL TP ONE ×2 (11:33→14:00)
[2019-12-17] MEDS ORDERED: LIDOCAINE (1%) 10 MG/1 ML VIAL 20 ML MDV ONE (11:36)
[2019-12-17] MEDS ORDERED: BUPIVACAINE-EPINEPHRINE/PF 0.25%-1:200,000 (10 ML) VIAL INFILTRATI ONE ×2 (11:37)
--- NOTE | 2019-12-17 11:59 | Anesthesia Consultation ---
Anesthesia Consult and Med Hx Date of service: 12/17/19 - Airway Anesthetic Teeth Evaluation: Poor, Partials (upper and lower) ROM Head & Neck: Adequate Mental/Hyoid Distance: Adequate Mallampati Class: Class II Intubation Access Assessment: Probably Good - Pulmonary Exam CTA: Yes - Cardiac Exam Cardiac Exam: RRR - Pre-Operative Health Status ASA Pre-Surgery Classification: ASA3 Proposed Anesthetic Plan: General - Pulmonary Hx Smoking: Yes (Former) Hx Respiratory Symptoms: Yes (dyspnea; resolved with HD) - Cardiovascular System Hx Hypertension: Yes Hx Heart Attack/AMI: No Hx Percutaneous Transluminal Coronary Angioplasty (PTCA): No Hx Cardia Arrhythmia: No - Central Nervous System CVA: No - Endocrine Hx End Stage Renal Disease: Yes (received HD 12/16/19) Hx Liver Disease: No Hx Non-Insulin Dependent Diabetes: Yes Hx Thyroid Disease: No - Hematic Hx Anemia: Yes - Other Systems Hx Obesity: No - Additional Comments Anesthesia Medical History Comments: No hx anesthetic complications. Patient initially scheduled for outpatient procedure but was found to have new onset dyspnea in PAT. He was admitted and found to have volume overload so HD was initiated. Patient reports symptoms have since resolved. COVID neg. Patient has no current signs/symptoms of HF decompensation and TTE results are pending. Will proceed with planned surgical procedure at this time.
--- NOTE | 2019-12-17 11:59 | Anesthesia Day of Surgery ---
Anesthesia Day of Surgery - Day of Surgery Patient Examined: Yes Patient H&P Reviewed: Yes Patient is NPO: Yes
[2019-12-17] MEDS ORDERED: PHENYLEPHRINE/NS 1,000 MCG/10 ML SYRINGE (OR USE) IV ONE (12:00)
[2019-12-17] MEDS ORDERED: MIDAZOLAM 2 MG/2 ML INJ IV NR (12:00)
[2019-12-17] MEDS ORDERED: fentaNYL 100 MCG/2 ML INJ IV PRN (12:00)
[2019-12-17] MEDS ORDERED: HYDROmorphone 1 MG/1 ML INJ ONE (12:09)
[2019-12-17] MEDS ORDERED: ONDANSETRON 4 MG/2 ML INJ ONE (12:09)
[2019-12-17] MEDS ORDERED: LIDOCAINE MPF (2%) 20 MG/1 ML VIAL 5 ML ONE (12:09)
[2019-12-17] MEDS ORDERED: dexAMETHasone 20 MG/5 ML VIAL ONE (12:09)
[2019-12-17] MEDS ORDERED: propofoL 200 MG/20 ML VIAL IV ONE (12:09)
[2019-12-17] MEDS ORDERED: MIDAZOLAM 2 MG/2 ML INJ ONE (12:19)
[2019-12-17] MEDS ORDERED: SODIUM CHLORIDE 0.9% 1000 ML 1,000 ML IV SCH (13:00)
[2019-12-17] MEDS ORDERED: HEPARIN 10,000 UNITS/10 ML VIAL IV ONE (13:58)
[2019-12-17] MEDS ORDERED: SODIUM CHLORIDE 0.9% 250 ML IVPB IV ONE (13:59)
[2019-12-17] MEDS ORDERED: SODIUM CHLORIDE 0.9% IRR 1,500 ML BOTTLE IR ONE (13:59)
--- NOTE | 2019-12-17 14:36 | Post Operative Note ---
Date of procedure: 12/17/19 Pre-op diagnosis: ESRD Post-op diagnosis: same Procedure: Right Arm AV Graft Insertion Anesthesia: GETA Surgeon: BILLIE HIGUERA (tanisha) Estimated blood loss: other (25ml) Pathology: none Condition: stable Disposition: PACU
--- NOTE | 2019-12-17 15:51 | Post Anesthesia Evaluation ---
- Post Anesthesia Evaluation Patient Participated: Yes Airway Patent: Yes Stable Respiratory Function: Yes Nausea/Vomiting: No Temp > 96.8F: Yes Pain Manageable: Yes Adequeate Hydration: Yes Anesthesia Complications: No
[2019-12-17] MEDS ORDERED: FUROSEMIDE 40 MG/4 ML INJ ONE (22:45)
[2019-12-17] MEDS ORDERED: GABAPENTIN 100 MG CAP ONE (22:46)
[2019-12-17] MEDS ORDERED: HEPARIN 5,000 UNIT/1 ML VIAL ONE (22:47)
[2019-12-18] MEDS: FUROSEMIDE 40 MG/4 ML INJ IV SCH ×2 (06:12→17:05)
[2019-12-18] MEDS: GABAPENTIN 100 MG CAP PO SCH ×3 (06:12→22:14)
[2019-12-18] MEDS: HEPARIN 5,000 UNIT/1 ML VIAL SUB-Q SCH ×2 (09:07→22:14)
[2019-12-18] MEDS: amLODIPine 10 MG TAB PO SCH (09:07)
[2019-12-18] MEDS: FAMOTIDINE 20 MG TAB PO SCH (09:07)
--- NOTE | 2019-12-18 09:33 | Operative Report ---
STAFF SURGEON: Dr. Sb Mace. PREOPERATIVE DIAGNOSIS: End-stage renal disease. POSTOPERATIVE DIAGNOSIS: End-stage renal disease. PROCEDURE PERFORMED: Right upper extremity AV graft insertion. COMPLICATIONS: None. ESTIMATED BLOOD LOSS: 25 mL. ANESTHESIA: General. INDICATIONS FOR PROCEDURE: This is a 44-year-old gentleman who was admitted for worsening renal function, requiring initiation of dialysis in which the patient underwent a catheter placement. The patient now returns for upper extremity access. The patient was explained the risks, benefits and alternatives of procedure, expressed understanding and wished to proceed. DESCRIPTION OF PROCEDURE: After appropriate consent was obtained, the patient was brought back to the operating room and placed on the operating table in supine position with the right arm extended. The patient was given appropriate medication for general anesthesia, had LMA placed without difficulty. The right arm was prepped and draped in the usual sterile fashion with ChloraPrep. Appropriate preoperative antibiotics were administered and appropriate time-out performed indicating correct patient, procedure, and site of procedure. We then began the operation by making a longitudinal incision near the antecubital fossa. This was carried through the subcutaneous tissue with a combination of blunt dissection and electrocautery. Dissection was then continued through the bicipital aponeurosis which allowed to expose the brachial artery, which was found to be suitable for arterial inflow. This was mobilized for appropriate distance both proximally and distally. We then proceeded to make a second incision near the axilla transversely. This was carried through the subcutaneous tissue with a combination of blunt dissection and electrocautery. Dissection was then continued through the fascia overlying the axillary neurovascular bundle. The axillary vein was identified and found to be suitable for venous outflow, was mobilized for appropriate distance both proximally and distally. We then proceeded to create a subcutaneous tunnel between the 2 incision sites bringing through a 4-7 mm Propaten graft. The patient was then given 5000 units of unfractionated heparin. After appropriate timeout elapsed, vascular clamps were placed on the brachial artery, both proximally and distally. Longitudinal arteriotomy was made with an 11 blade and extended with Archer scissors. Then I proceeded to spatulate the graft, then end-to-side anastomosis was performed with a running 6-0 Prolene suture. Once complete, flow was established through the graft, had a nice pulsatile flow. The graft was cut to an appropriate length and spatulated. Vascular clamps were then placed on the axillary vein, both proximally and distally. Longitudinal venotomy was made with an 11 blade and extended with Archer scissors, then end-to-side anastomosis was performed with a running 5-0 Prolene suture. Once complete flow was reestablished through the graft, we had a nice palpable thrill, we then looked to obtain hemostasis along our suture lines, which was obtained with hemostatic agents. Once we were satisfied with hemostasis, we then proceeded to close both wounds with a deep subcutaneous layer with interrupted 3-0 PDS and the skin was approximated with cleo. Appropriate dressing was placed. The patient tolerated the procedure well, emerged from the general anesthesia, the LMA removed, and was sent to recovery in stable condition. All the sponges, instrument and needle counts were correct at completion of the operation. JOB# [id number] SARAH/ADELSO
--- NOTE | 2019-12-18 10:15 | Progress Note ---
Subjective Date of service: 12/18/19 Principal diagnosis: CHF,ESRD needing HD Interval history: s/p right arm av graft insertion patient doing well palpable thrill incisions c/d/i with cleo no ischemic symptoms to the right hand ok to d/c from my standpoint once medically stable follow-up 1-2 weeks Objective - Constitutional Vitals: Vital Signs - 12hr 12/18/19 12/18/19 12/18/19 00:40 04:29 08:14 Temperature 98.4 F 98.4 F 98.3 F Pulse Rate 90 86 91 H Respiratory 18 18 18 Rate Blood Pressure 147/71 160/79 178/87 O2 Sat by Pulse 99 97 98 Oximetry 12/18/19 09:07 Temperature Pulse Rate 91 H Respiratory Rate Blood Pressure 178/87 O2 Sat by Pulse Oximetry - Labs CBC & Chem 7: 12/16/19 10:09 12/17/19 05:38 Medications & Allergies - Medications Allergies/Adverse Reactions: Allergies No Known Allergies Allergy (Unverified 12/14/19 11:41) Home Medications: Home Medications Medication Instructions Recorded Confirmed Last Taken Type Gabapentin [Neurontin] 100 mg PO Q8HR 12/14/19 12/15/19 12/15/19 History amLODIPine [Norvasc] 10 mg PO DAILY 12/14/19 12/15/19 12/15/19 History Active Medications: Generic Name Dose Route Start Last Admin Trade Name Freq PRN Reason Stop Dose Admin Acetaminophen 650 mg 12/15/19 23:57 Tylenol PO Q4H PRN Pain MILD(1-3)/Fever >100.5/SCHMID Amlodipine Besylate 10 mg 12/16/19 10:00 12/18/19 09:07 Amlodipine PO 10 mg DAILY GARY Administration Cefazolin Sodium 2 gm 12/17/19 11:15 Ancef/Sterile Water 2 Gm/20 Ml IV 12/18/19 11:14 PREOP NR Famotidine 20 mg 12/16/19 10:00 12/18/19 09:07 Pepcid PO 20 mg QAM GARY Administration Furosemide 40 mg 12/16/19 06:00 12/18/19 06:12 Lasix IV 40 mg 0600,1800 GARY Administration Gabapentin 100 mg 12/16/19 01:00 12/18/19 06:12 Gabapentin PO 100 mg Q8HR GARY Administration Heparin Sodium (Porcine) 5,000 unit 12/16/19 10:00 12/18/19 09:07 Heparin SUB-Q 5,000 unit Q12HR GARY Administration Hydromorphone HCl 0.5 mg 12/15/19 23:57 Dilaudid IV Q3H PRN Pain , Severe (7-10) Sodium Chloride 100 mls @ 999 mls/hr 12/17/19 08:00 Nacl 0.9% IV TATIANNA PRN Hypotension Ondansetron HCl 4 mg 12/15/19 23:57 Zofran IV Q8H PRN Nausea And Vomiting Oxycodone/Acetaminophen 1 tab 12/15/19 23:57 12/16/19 00:58 Percocet 5/325 PO 1 tab Q6H PRN Administration Pain, Moderate (4-6) Sodium Chloride 10 ml 12/16/19 10:00 12/18/19 09:08 Sodium Chloride Flush Syringe 10 Ml IV 10 ml BID GARY Administration Sodium Chloride 10 ml 12/15/19 23:57 Sodium Chloride Flush Syringe 10 Ml IV PRN PRN LINE FLUSH HEART Score - HEART Score Age: < 45 Risk factors: 1-2 risk factors Troponin: 1-3x normal limit - Critical Actions Critical Actions: 4-6 pts:12-16.6% risk of adverse cardiac event. Should be admitted
--- NOTE | 2019-12-18 12:46 | Progress Note ---
Assessment and Plan - Patient Problems (1) Volume overload Current Visit: Yes Status: Acute Plan to address problem: Patient presents with volume overload associated with end-stage renal failure. Currently on dialysis, and symptoms have improved. Echocardiogram shows normal left ventricle systolic function, ejection fraction 55 to 60%, with moderate, concentric left ventricle hypertrophy associated with his chronic hypertension. Continue current management with dialysis, and blood pressure management. Patient is stable for cardiac discharge, as outpatient we will consider further cardiac work-up as indicated. Subjective Date of service: 12/18/19 Principal diagnosis: CHF,ESRD needing HD Interval history: Patient looks and feels better, comfortable in no acute distress. No cardiac complaints. Objective Vital Signs Temp Pulse Resp BP Pulse Ox 12/18/19 09:07 91 H 178/87 12/18/19 08:14 98.3 F 91 H 18 178/87 98 12/18/19 04:29 98.4 F 86 18 160/79 97 12/18/19 00:40 98.4 F 90 18 147/71 99 12/17/19 20:18 98.7 F 87 18 166/77 100 12/17/19 19:49 82 12/17/19 19:22 98.2 F 76 18 147/82 12/17/19 18:45 82 137/62 12/17/19 18:30 80 131/75 12/17/19 18:15 80 131/75 12/17/19 18:00 78 141/75 12/17/19 17:45 78 148/79 12/17/19 17:30 78 159/81 12/17/19 17:15 75 158/76 12/17/19 17:00 79 159/77 12/17/19 16:45 76 156/79 12/17/19 16:30 76 152/84 12/17/19 16:15 76 153/84 12/17/19 16:00 96.6 F L 77 18 153/84 12/17/19 15:30 76 14 146/80 98 12/17/19 15:15 97.4 F L 73 14 149/85 100 12/17/19 15:00 69 14 138/76 100 12/17/19 14:55 70 14 133/75 100 12/17/19 14:50 71 14 138/76 100 12/17/19 14:44 97.6 F 69 14 133/75 100 - Physical Examination General: Appears Well, No Apparent Distress HEENT: Positive: PERRL Neck: Positive: neck supple Cardiac: Positive: Reg Rate and Rhythm Lungs: Positive: clear to auscultation Neuro: Positive: Grossly Intact Abdomen: Positive: Soft Skin: Positive: Clear Extremities: Absent: edema - Imaging and Cardiology EKG: report reviewed (Sinus rhythm heart rate of 90/min no acute ST-T wave changes LVH by voltage criteria)
--- NOTE | 2019-12-18 16:43 | Progress Note ---
Assessment and Plan - Patient Problems (1) Acute exacerbation of CHF (congestive heart failure) Current Visit: Yes Status: Acute Qualifiers: Heart failure type: diastolic Qualified Code(s): I50.33 - Acute on chronic diastolic (congestive) heart failure Plan to address problem: Patient with diastolic heart failure. Ejection fraction 60% the majority of patient's acute respiratory failure secondary to volume overload from renal failure. Resolved. (2) DVT prophylaxis Current Visit: Yes Status: Acute Plan to address problem: Lovenox. (3) Hyponatremia Current Visit: Yes Status: Resolved Plan to address problem: Hyponatremia has resolved electrolytes have been corrected. (4) Metabolic acidosis Current Visit: Yes Status: Acute Plan to address problem: Resolved with hemodialysis. (5) Volume overload Current Visit: Yes Status: Acute Plan to address problem: Volume overload resolved with hemodialysis and correction of underlying etiology optimizing blood pressure control. (6) Anemia Current Visit: Yes Status: Chronic Qualifiers: Anemia type: due to chronic kidney disease Chronic kidney disease stage: stage 5, not on chronic dialysis Qualified Code(s): N18.5 - Chronic kidney disease, stage 5; D63.1 - Anemia in chronic kidney disease Plan to address problem: Chronic anemia secondary to renal failure (7) End stage renal disease Current Visit: Yes Status: Chronic Plan to address problem: Patient to proceed with hemodialysis today. Case management to set up outpatient hemodialysis center. Awaiting chair time. (8) Hypertension Current Visit: Yes Status: Chronic Qualifiers: Hypertension type: essential hypertension Qualified Code(s): I10 - Essential (primary) hypertension Plan to address problem: Patient has fair blood pressure control somewhat suboptimal today. Will reevaluate after hemodialysis. (9) Type 2 diabetes mellitus Current Visit: Yes Status: Chronic Plan to address problem: Patient currently has optimal control blood glucose. 112 130 highest 141. Subjective Date of service: 12/18/19 Principal diagnosis: CHF,ESRD needing HD Interval history: The patient is a 44-year-old man with a history of hypertension, diabetes and chronic kidney failure. There is no prior cardiac history. He states that over the past several months his kidney function has been being monitored by the program director/morning show host and has been progressively worsening. Over the past several weeks he has developed lower extremity edema and progressive exertional dyspnea. Yesterday, his program director/morning show host saw that his creatinine had risen to 13, he was fluid overloaded, suggested that he should be admitted for dialysis to be initiated. Today he underwent placement of a left subclavian dialysis catheter and has received his first dialysis treatment. Patient at present being sent down for hemodialysis today. Hospital course uncomplicated over p.m. Patient to have Vas-Cath in initial hemodialysis. Patient has been dialyzed twice. Doing well. No symptoms of nausea or uremia. Patient presently is here awaiting set up to set up outpatient dialysis chair time. Objective - Constitutional Vitals: Vital Signs - 12hr 12/18/19 12/18/19 12/18/19 08:14 09:00 09:07 Temperature 98.3 F Pulse Rate 91 H 89 91 H Respiratory 18 Rate Blood Pressure 178/87 178/87 Blood Pressure [Right] O2 Sat by Pulse 98 Oximetry 12/18/19 12/18/19 13:47 16:07 Temperature 98.3 F Pulse Rate 91 H 96 H Respiratory 18 Rate Blood Pressure Blood Pressure 165/88 [Right] O2 Sat by Pulse 100 Oximetry General appearance: Present: no acute distress, well-nourished - EENT Eyes: PERRL, EOM intact ENT: hearing intact, clear oral mucosa Ears: bilateral: normal - Neck Neck: supple, normal ROM - Respiratory Respiratory effort: normal Respiratory: bilateral: CTA - Breasts Breasts: normal - Cardiovascular Rhythm: regular Heart Sounds: Present: S1 & S2. Absent: gallop, rub Extremities: pulses intact, No edema, normal color, Full ROM - Gastrointestinal General gastrointestinal: Present: soft, non-tender, non-distended, normal bowel sounds - Genitourinary Male genitourinary: normal - Integumentary Integumentary: clear, warm, dry - Musculoskeletal Musculoskeletal: 1, strength equal bilaterally - Neurologic Neurologic: moves all extremities - Psychiatric Psychiatric: memory intact, appropriate mood/affect, intact judgment & insight - Labs CBC & Chem 7: 12/16/19 10:09 12/17/19 05:38 HEART Score - HEART Score Age: < 45 Risk factors: 1-2 risk factors Troponin: 1-3x normal limit - Critical Actions Critical Actions: 4-6 pts:12-16.6% risk of adverse cardiac event. Should be admitted
--- NOTE | 2019-12-18 19:11 | Progress Note ---
Assessment and Plan assessment * end-stage renal disease * Anemia * Acidosis * Hypertension, uncontrolled * Respiratory distress Recommendations * continue hemodialysis MWF * Case management to assist with dialysis unit placement * Continue home antihypertensives * Renally dose medications * ESRD diet * check PTH, phosphorus Subjective Date of service: 12/18/19 Principal diagnosis: CHF,ESRD needing HD Interval history: Patient was seen for his renal issues Nursing, interdisciplinary and consult notes were reviewed Vitals, input and output, medications and labs were reviewed Tolerated dialysis without any complications yesterday Objective - Exam Narrative Exam: Vitals: Reviewed General: No acute distress HEENT: Oral mucosa moist, no pharyngeal erythema, no evidence of epistaxis Neck: Supple, no evidence of any JVD, trachea midline, no thyromegaly Chest: decreased breath sounds bilaterally Heart: Regular rate and rhythm, S1-S2 heard, no pericardial rub Abdomen: Soft, nontender, no renal bruit, no suprapubic masses no CVA tenderness Extremity: No peripheral cyanosis, 1+ edema Neurological: Alert, awake, no asterixis Dermatology; no skin rashes Back: Nontender thoracolumbar spine, no CVA tenderness Psych: No agitation and aggression Musculoskeletal: No joint effusion noted - Vital Signs Vital signs: Vital Signs - 12hr 12/18/19 12/18/19 12/18/19 08:14 09:00 09:07 Temperature 98.3 F Pulse Rate 91 H 89 91 H Respiratory 18 Rate Blood Pressure 178/87 178/87 Blood Pressure [Right] O2 Sat by Pulse 98 Oximetry 12/18/19 12/18/19 12/18/19 13:45 13:47 16:07 Temperature 98.3 F Pulse Rate 89 91 H 96 H Respiratory 18 Rate Blood Pressure 165/88 Blood Pressure 165/88 [Right] O2 Sat by Pulse 100 100 Oximetry - Lab 12/16/19 10:09 12/17/19 05:38 Most recent lab results Calcium 7.4 mg/dL (8.4-10.2) L 12/17/19 05:38 Medications & Allergies - Medications Allergies/Adverse Reactions: Allergies No Known Allergies Allergy (Unverified 12/14/19 11:41) Home Medications: Home Medications Medication Instructions Recorded Confirmed Last Taken Type Gabapentin [Neurontin] 100 mg PO Q8HR 12/14/19 12/15/19 12/15/19 History amLODIPine [Norvasc] 10 mg PO DAILY 12/14/19 12/15/19 12/15/19 History Active Medications: Generic Name Dose Route Start Last Admin Trade Name Freq PRN Reason Stop Dose Admin Acetaminophen 650 mg 12/15/19 23:57 Tylenol PO Q4H PRN Pain MILD(1-3)/Fever >100.5/SCHMID Amlodipine Besylate 10 mg 12/16/19 10:00 12/18/19 09:07 Amlodipine PO 10 mg DAILY GARY Administration Famotidine 20 mg 12/16/19 10:00 12/18/19 09:07 Pepcid PO 20 mg QAM GARY Administration Furosemide 40 mg 12/16/19 06:00 12/18/19 17:05 Lasix IV 40 mg 0600,1800 GARY Administration Gabapentin 100 mg 12/16/19 01:00 12/18/19 14:58 Gabapentin PO 100 mg Q8HR GARY Administration Heparin Sodium (Porcine) 5,000 unit 12/16/19 10:00 12/18/19 09:07 Heparin SUB-Q 5,000 unit Q12HR GARY Administration Hydromorphone HCl 0.5 mg 12/15/19 23:57 Dilaudid IV Q3H PRN Pain , Severe (7-10) Sodium Chloride 100 mls @ 999 mls/hr 12/17/19 08:00 Nacl 0.9% IV TATIANNA PRN Hypotension Ondansetron HCl 4 mg 12/15/19 23:57 Zofran IV Q8H PRN Nausea And Vomiting Oxycodone/Acetaminophen 1 tab 12/15/19 23:57 12/16/19 00:58 Percocet 5/325 PO 1 tab Q6H PRN Administration Pain, Moderate (4-6) Sodium Chloride 10 ml 12/16/19 10:00 12/18/19 09:08 Sodium Chloride Flush Syringe 10 Ml IV 10 ml BID GARY Administration Sodium Chloride 10 ml 12/15/19 23:57 Sodium Chloride Flush Syringe 10 Ml IV PRN PRN LINE FLUSH
[2019-12-19] MEDS: FUROSEMIDE 40 MG/4 ML INJ IV SCH ×2 (05:42→19:02)
[2019-12-19] MEDS: GABAPENTIN 100 MG CAP PO SCH ×3 (05:42→22:00)
[2019-12-19] MEDS: oxyCODONE /ACETAMINOPHEN 5-325MG TAB PO PRN (05:51)
[2019-12-19] MEDS: amLODIPine 10 MG TAB PO SCH ×2 (11:52→11:53)
[2019-12-19] MEDS: FAMOTIDINE 20 MG TAB PO SCH (11:52)
[2019-12-19] MEDS: HEPARIN 5,000 UNIT/1 ML VIAL SUB-Q SCH ×2 (11:54→22:00)
--- NOTE | 2019-12-19 15:40 | Progress Note ---
Assessment and Plan - Patient Problems (1) Volume overload Current Visit: Yes Status: Acute Plan to address problem: Patient presented with volume overload associated with end-stage renal failure. Currently on dialysis, and symptoms have improved. Echocardiogram shows normal left ventricle systolic function, ejection fraction 55 to 60%, with moderate, concentric left ventricle hypertrophy associated with his chronic hypertension. Continue current dialysis regimen, and blood pressure management. As outpatient we will consider further cardiac work-up as indicated. Subjective Date of service: 12/19/19 Principal diagnosis: CHF,ESRD needing HD Interval history: Patient looks and feels better, comfortable in no acute distress. No cardiac complaints. Objective Vital Signs Temp Pulse Resp BP Pulse Ox 12/19/19 11:53 89 145/74 12/19/19 08:13 98.2 F 86 18 145/74 96 12/19/19 04:10 98.6 F 82 18 153/74 98 12/19/19 00:02 98.9 F 90 18 137/79 97 12/18/19 20:17 99.1 F 89 18 148/73 97 12/18/19 19:27 93 H 12/18/19 18:00 98.1 F 92 H 18 163/85 99 12/18/19 16:07 96 H - Physical Examination General: Appears Well, No Apparent Distress HEENT: Positive: PERRL Neck: Positive: neck supple Cardiac: Positive: Reg Rate and Rhythm Lungs: Positive: clear to auscultation Neuro: Positive: Grossly Intact Abdomen: Positive: Soft Skin: Positive: Clear Extremities: Absent: edema - Imaging and Cardiology EKG: report reviewed (Sinus rhythm heart rate of 90/min no acute ST-T wave changes LVH by voltage criteria)
--- NOTE | 2019-12-19 15:55 | Progress Note ---
Assessment and Plan - Patient Problems (1) Acute exacerbation of CHF (congestive heart failure) Current Visit: Yes Status: Acute Qualifiers: Heart failure type: diastolic Qualified Code(s): I50.33 - Acute on chronic diastolic (congestive) heart failure Plan to address problem: Patient with diastolic heart failure. Ejection fraction 60% the majority of patient's acute respiratory failure secondary to volume overload from renal failure. Resolved. No orthopnea no PND. (2) DVT prophylaxis Current Visit: Yes Status: Acute Plan to address problem: Lovenox. (3) Hyponatremia Current Visit: Yes Status: Resolved Plan to address problem: Resolved current sodium 140. (4) Metabolic acidosis Current Visit: Yes Status: Acute Plan to address problem: Resolved with hemodialysis. (5) Volume overload Current Visit: Yes Status: Acute Plan to address problem: Treated with hemodialysis. Patient hemodynamically stable. Awaiting outpatient hemodialysis set up. (6) Anemia Current Visit: Yes Status: Chronic Qualifiers: Anemia type: due to chronic kidney disease Chronic kidney disease stage: stage 5, not on chronic dialysis Qualified Code(s): N18.5 - Chronic kidney disease, stage 5; D63.1 - Anemia in chronic kidney disease Plan to address problem: Chronic anemia secondary to renal failure (7) End stage renal disease Current Visit: Yes Status: Chronic Plan to address problem: Patient to proceed with hemodialysis today. Case management to set up outpatient hemodialysis center. Awaiting chair time. (8) Hypertension Current Visit: Yes Status: Chronic Qualifiers: Hypertension type: essential hypertension Qualified Code(s): I10 - Essential (primary) hypertension Plan to address problem: Patient has fair blood pressure control somewhat suboptimal today. Will reevaluate after hemodialysis. (9) Type 2 diabetes mellitus Current Visit: Yes Status: Chronic Plan to address problem: Patient currently has optimal control blood glucose. Today 140 and 79. Subjective Date of service: 12/19/19 Principal diagnosis: CHF,ESRD needing HD Interval history: The patient is a 44-year-old man with a history of hypertension, diabetes and chronic kidney failure. There is no prior cardiac history. He states that over the past several months his kidney function has been being monitored by the vamp marker and has been progressively worsening. Over the past several weeks he has developed lower extremity edema and progressive exertional dyspnea. Yesterday, his vamp marker saw that his creatinine had risen to 13, he was fluid overloaded, suggested that he should be admitted for dialysis to be initiated. Today he underwent placement of a left subclavian dialysis catheter and has received his first dialysis treatment. Patient at present being sent down for hemodialysis today. Hospital course uncomplicated over p.m. Patient to have Vas-Cath in initial hemodialysis. Patient has been dialyzed twice. Doing well. No symptoms of nausea or uremia. Patient presently is here awaiting set up to set up outpatient dialysis chair time. No new concerns today still awaiting outpatient treatment. For hemodialysis in a.m. Objective - Constitutional Vitals: Vital Signs - 12hr 12/19/19 12/19/19 12/19/19 04:10 08:13 11:53 Temperature 98.6 F 98.2 F Pulse Rate 82 86 89 Respiratory 18 18 Rate Blood Pressure 153/74 145/74 145/74 O2 Sat by Pulse 98 96 Oximetry General appearance: Present: no acute distress, well-nourished - EENT Eyes: PERRL, EOM intact ENT: hearing intact, clear oral mucosa Ears: bilateral: normal - Neck Neck: supple, normal ROM - Respiratory Respiratory effort: normal Respiratory: bilateral: CTA - Breasts Breasts: normal - Cardiovascular Rhythm: regular Heart Sounds: Present: S1 & S2. Absent: gallop, rub Extremities: pulses intact, No edema, normal color, Full ROM - Gastrointestinal General gastrointestinal: Present: soft, non-tender, non-distended, normal bowel sounds - Genitourinary Male genitourinary: normal - Integumentary Integumentary: clear, warm, dry - Musculoskeletal Musculoskeletal: 1, strength equal bilaterally - Neurologic Neurologic: moves all extremities - Psychiatric Psychiatric: memory intact, appropriate mood/affect, intact judgment & insight - Labs CBC & Chem 7: 12/16/19 10:09 12/17/19 05:38 Labs: Abnormal lab results 12/18/19 12/18/19 Range/Units 20:35 20:35 Phosphorus 5.20 H (2.5-4.5) mg/dL PTH Intact 398.7 H (15-65) pg/mL HEART Score - HEART Score Age: < 45 Risk factors: 1-2 risk factors Troponin: 1-3x normal limit - Critical Actions Critical Actions: 4-6 pts:12-16.6% risk of adverse cardiac event. Should be admitted
--- NOTE | 2019-12-19 19:07 | Progress Note ---
Assessment and Plan assessment * end-stage renal disease * Anemia * Acidosis * Hypertension, uncontrolled * Respiratory distress Recommendations * continue hemodialysis MWF * Case management to assist with dialysis unit placement * Continue home antihypertensives * Renally dose medications * ESRD diet * check PTH, phosphorus Subjective Date of service: 12/19/19 Principal diagnosis: CHF,ESRD needing HD Interval history: Patient was seen for his renal issues Nursing, interdisciplinary and consult notes were reviewed Vitals, input and output, medications and labs were reviewed Breathing has improved, saturating fine on room air Objective - Exam Narrative Exam: Vitals: Reviewed General: No acute distress HEENT: Oral mucosa moist, no pharyngeal erythema, no evidence of epistaxis Neck: Supple, no evidence of any JVD, trachea midline, no thyromegaly Chest: decreased breath sounds bilaterally Heart: Regular rate and rhythm, S1-S2 heard, no pericardial rub Abdomen: Soft, nontender, no renal bruit, no suprapubic masses no CVA tenderness Extremity: No peripheral cyanosis, 1+ edema Neurological: Alert, awake, no asterixis Dermatology; no skin rashes Back: Nontender thoracolumbar spine, no CVA tenderness Psych: No agitation and aggression Musculoskeletal: No joint effusion noted - Vital Signs Vital signs: Vital Signs - 12hr 12/19/19 12/19/19 12/19/19 08:00 08:13 11:53 Temperature 98.2 F Pulse Rate 86 86 89 Respiratory 18 Rate Blood Pressure 145/74 145/74 O2 Sat by Pulse 96 Oximetry 12/19/19 12/19/19 11:54 16:00 Temperature 98.4 F Pulse Rate 88 69 Respiratory 18 Rate Blood Pressure 148/72 O2 Sat by Pulse 97 Oximetry - Lab 12/16/19 10:09 12/17/19 05:38 Most recent lab results Calcium 7.4 mg/dL (8.4-10.2) L 12/17/19 05:38 Phosphorus 5.20 mg/dL (2.5-4.5) H 12/18/19 20:35 Medications & Allergies - Medications Allergies/Adverse Reactions: Allergies No Known Allergies Allergy (Unverified 12/14/19 11:41) Home Medications: Home Medications Medication Instructions Recorded Confirmed Last Taken Type Gabapentin [Neurontin] 100 mg PO Q8HR 12/14/19 12/15/19 12/15/19 History amLODIPine [Norvasc] 10 mg PO DAILY 12/14/19 12/15/19 12/15/19 History Active Medications: Generic Name Dose Route Start Last Admin Trade Name Freq PRN Reason Stop Dose Admin Acetaminophen 650 mg 12/15/19 23:57 Tylenol PO Q4H PRN Pain MILD(1-3)/Fever >100.5/SCHMID Amlodipine Besylate 10 mg 12/16/19 10:00 12/19/19 11:53 Amlodipine PO 10 mg DAILY GARY Administration Famotidine 20 mg 12/16/19 10:00 12/19/19 11:52 Pepcid PO 20 mg QAM GARY Administration Furosemide 40 mg 12/16/19 06:00 12/19/19 19:02 Lasix IV 40 mg 0600,1800 GARY Administration Gabapentin 100 mg 12/16/19 01:00 12/19/19 14:15 Gabapentin PO Not Given Q8HR GARY Heparin Sodium (Porcine) 5,000 unit 12/16/19 10:00 12/19/19 11:54 Heparin SUB-Q 5,000 unit Q12HR GARY Administration Hydromorphone HCl 0.5 mg 12/15/19 23:57 Dilaudid IV Q3H PRN Pain , Severe (7-10) Sodium Chloride 100 mls @ 999 mls/hr 12/17/19 08:00 Nacl 0.9% IV TATIANNA PRN Hypotension Ondansetron HCl 4 mg 12/15/19 23:57 Zofran IV Q8H PRN Nausea And Vomiting Oxycodone/Acetaminophen 1 tab 12/15/19 23:57 12/19/19 05:51 Percocet 5/325 PO 1 tab Q6H PRN Administration Pain, Moderate (4-6) Sodium Chloride 10 ml 12/16/19 10:00 12/19/19 11:54 Sodium Chloride Flush Syringe 10 Ml IV 10 ml BID GARY Administration Sodium Chloride 10 ml 12/15/19 23:57 Sodium Chloride Flush Syringe 10 Ml IV PRN PRN LINE FLUSH
[2019-12-19] MEDS ORDERED: SODIUM CHLORIDE 0.9% 100 ML IV PRN (19:36)
[2019-12-20] MEDS: GABAPENTIN 100 MG CAP PO SCH (06:38)
[2019-12-20] MEDS: FUROSEMIDE 40 MG/4 ML INJ IV SCH (06:38)
--- NOTE | 2019-12-20 09:50 | Progress Note ---
Subjective Principal diagnosis: CHF,ESRD needing HD Interval history: Patient was seen today for follow-up of multiple renal related issues No complaints of any chest pain pressure or shortness of breath Interdisciplinary notes that also reviewed Events of 24 hours vitals labs intake output medications were reviewed Past medical history: Reviewed Family history: Reviewed Social history: Reviewed Allergies: Reviewed Physical examination: Vitals: Reviewed HEENT: No pallor or icterus oral mucosa moist Neck: Supple no JVD no thyromegaly Chest: Bilateral clear to auscultation anteriorly Heart: Regular rate and rhythm S1-S2 heard no S3-S4 Abdomen: Soft nontender no voluntary guarding rigidity rebound Extremity: Dry skin less than 1+ peripheral edema Psychiatric: No evidence of agitation and aggression noted Dermatology: No petechial rashes Labs and x-rays: Reviewed from today Assessment and plan ESRD currently in maintenance of dialysis Friday and Friday patient needs outpatient dialysis facility 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 to follownumber he will continue to dialyze 3 times per week I have discussed counseling educated regarding end-stage renal disease care plan diet and lifestyle changes advised the patient to get further education from [employer] website Anemia in end-stage renal disease: To monitor and follow Bone mineral disorder and secondary hyperparathyroidism: Periodically monitor phosphorus and PTH level Nutrition: Needs to be in high protein diet 1.5 g/kg body weight Hypertension and volume: Continue to monitor goal systolic blood pressure under 140, dialysis days under 160 ultrafiltration as tolerated dialysis nurse to monitor hemodynamics during dialysis Patient was adequately counseled and educated regarding all the renal related issues Laboratory studies, have been explained to the patient All questions were answered and simple [place] We'll continue to follow and make recommendation for renal standpoint Objective - Vital Signs Vital signs: Vital Signs - 12hr 12/20/19 12/20/19 12/20/19 00:32 04:17 08:00 Temperature 98.4 F 98.6 F Pulse Rate 92 H 89 86 Respiratory 18 18 Rate Blood Pressure 145/76 150/74 Blood Pressure [Right] O2 Sat by Pulse 97 94 Oximetry 12/20/19 08:57 Temperature 98.6 F Pulse Rate 89 Respiratory 16 Rate Blood Pressure Blood Pressure 180/80 [Right] O2 Sat by Pulse 98 Oximetry - Lab 12/16/19 10:09 12/17/19 05:38 Most recent lab results Calcium 7.4 mg/dL (8.4-10.2) L 12/17/19 05:38 Phosphorus 5.20 mg/dL (2.5-4.5) H 12/18/19 20:35 Medications & Allergies - Medications Allergies/Adverse Reactions: Allergies No Known Allergies Allergy (Unverified 12/14/19 11:41) Home Medications: Home Medications Medication Instructions Recorded Confirmed Last Taken Type Acetaminophen [Acetaminophen TAB] 650 mg PO Q4H PRN tablet 12/20/19 Unknown Rx Famotidine [Pepcid] 20 mg PO QAM tablet 12/20/19 Unknown Rx Gabapentin 100 mg PO Q8HR #90 cap 12/20/19 Unknown Rx amLODIPine 10 mg PO DAILY #30 12/20/19 Unknown Rx oxyCODONE /ACETAMINOPHEN [Percocet 1 tab PO Q6H PRN #20 tablet 12/20/19 Unknown Rx 5/325 mg] Active Medications: Generic Name Dose Route Start Last Admin Trade Name Freq PRN Reason Stop Dose Admin Acetaminophen 650 mg 12/15/19 23:57 Tylenol PO Q4H PRN Pain MILD(1-3)/Fever >100.5/SCHMID Amlodipine Besylate 10 mg 12/16/19 10:00 12/19/19 11:53 Amlodipine PO 10 mg DAILY GARY Administration Famotidine 20 mg 12/16/19 10:00 12/19/19 11:52 Pepcid PO 20 mg QAM GARY Administration Furosemide 40 mg 12/16/19 06:00 12/20/19 06:38 Lasix IV 40 mg 0600,1800 GARY Administration Gabapentin 100 mg 12/16/19 01:00 12/20/19 06:38 Gabapentin PO 100 mg Q8HR GARY Administration Heparin Sodium (Porcine) 5,000 unit 12/16/19 10:00 12/19/19 22:00 Heparin SUB-Q 5,000 unit Q12HR GARY Administration Hydromorphone HCl 0.5 mg 12/15/19 23:57 Dilaudid IV Q3H PRN Pain , Severe (7-10) Sodium Chloride 100 mls @ 999 mls/hr 12/17/19 08:00 Nacl 0.9% IV TATIANNA PRN Hypotension Ondansetron HCl 4 mg 12/15/19 23:57 Zofran IV Q8H PRN Nausea And Vomiting Oxycodone/Acetaminophen 1 tab 12/15/19 23:57 12/19/19 05:51 Percocet 5/325 PO 1 tab Q6H PRN Administration Pain, Moderate (4-6) Sodium Chloride 10 ml 12/16/19 10:00 12/19/19 22:00 Sodium Chloride Flush Syringe 10 Ml IV 10 ml BID GARY Administration Sodium Chloride 10 ml 12/15/19 23:57 Sodium Chloride Flush Syringe 10 Ml IV PRN PRN LINE FLUSH
[2019-12-20] MEDS: amLODIPine 10 MG TAB PO SCH (10:19)
[2019-12-20] MEDS: FAMOTIDINE 20 MG TAB PO SCH (10:19)
[2019-12-20] MEDS: HEPARIN 5,000 UNIT/1 ML VIAL SUB-Q SCH (10:21)
--- NOTE | 2019-12-20 11:56 | Progress Note ---
Assessment and Plan Volume overload ESRD, initiated on dialysis Hypertension Diabetes Echo reports a normal LVEF of 55-60%. Conservative cardiac management. Subjective Date of service: 12/20/19 Principal diagnosis: CHF,ESRD needing HD Interval history: Patient is resting in bed comfortably. No cardiac complaints. Objective Vital Signs Temp Pulse Resp BP BP Pulse Ox 12/20/19 10:19 95 H 12/20/19 08:57 98.6 F 89 16 180/80 98 12/20/19 08:00 86 12/20/19 04:17 98.6 F 89 18 150/74 94 12/20/19 00:32 98.4 F 92 H 18 145/76 97 12/19/19 20:41 98.3 F 96 H 18 158/74 94 12/19/19 19:24 94 H 12/19/19 16:00 69 - Physical Examination General: No Apparent Distress HEENT: Positive: PERRL Neck: Positive: neck supple Cardiac: Positive: Reg Rate and Rhythm Lungs: Positive: Decreased Breath Sounds Neuro: Positive: Grossly Intact Extremities: Absent: edema
--- NOTE | 2019-12-20 14:31 | Discharge Summary ---
Providers - Providers Date of Admission: 12/16/19 14:00 Date of discharge: 12/20/19 Attending physician: JAIME PHILLIPS 12/15/19 18:28 Consult to Physician [CONS] Stat Comment: Consulting Provider: ZACK CASTANON Physician Instructions: Reason For Exam: esrd 12/15/19 19:08 Consult to Physician [CONS] Stat Comment: Spoke with Dr. Tate @ 2005 Consulting Provider: JAIME TATE Physician Instructions: Reason For Exam: esrd access 12/16/19 09:22 Consult to Physician [CONS] Routine Comment: Consulting Provider: MATILDE MONTALVO Physician Instructions: Reason For Exam: CHF exacerbation/volume overload Primary care physician: BEAD FORMING MACHINE SET UP OPERATOR Hospitalization Condition: Stable Hospital course: Interval history: The patient is a 44-year-old man with a history of hypertension, diabetes and chronic kidney failure. There is no prior cardiac history. He states that over the past several months his kidney function has been being monitored by the nursery attendant and has been progressively worsening. Over the past several weeks he has developed lower extremity edema and progressive exertional dyspnea. Yesterday, his nursery attendant saw that his creatinine had risen to 13, he was fluid overloaded, suggested that he should be admitted for dialysis to be initiated. Today he underwent placement of a left subclavian dialysis catheter and has received his first dialysis treatment. Patient at present being sent down for hemodialysis today. Hospital course uncomplicated over p.m. Patient to have Vas-Cath in initial hemodialysis. Patient has been dialyzed twice. Doing well. No symptoms of nausea or uremia. Patient presently is here awaiting set up to set up outpatient dialysis chair time. No new concerns today still awaiting outpatient treatment. Patient underwent successful dialysis. Now also has a treatment center to perform dialysis has a bed and chair time. Will discharge today. Disposition: DC- TO HOME OR SELFCARE - Discharge Diagnoses (1) Acute exacerbation of CHF (congestive heart failure) Status: Acute Qualifiers: Heart failure type: diastolic Qualified Code(s): I50.33 - Acute on chronic diastolic (congestive) heart failure Comment: Diastolic ejection fraction of 60% resolved. No need for diuretics at this time. (2) DVT prophylaxis Status: Acute (3) Hyponatremia Status: Resolved (4) Metabolic acidosis Status: Acute (5) Volume overload Status: Acute Comment: Corrected with hemodialysis. Patient candidate for hemodialysis. (6) Anemia Status: Chronic Qualifiers: Anemia type: due to chronic kidney disease Chronic kidney disease stage: stage 5, not on chronic dialysis Qualified Code(s): N18.5 - Chronic kidney disease, stage 5; D63.1 - Anemia in chronic kidney disease Comment: Anemia of chronic disease Procrit not indicated at this point. (7) End stage renal disease Status: Chronic (8) Hypertension Status: Chronic Qualifiers: Hypertension type: essential hypertension Qualified Code(s): I10 - Essential (primary) hypertension (9) Type 2 diabetes mellitus Status: Chronic Comment: Patient continues to have optimal control of diabetes. Core Measure Documentation - Palliative Care Palliative Care/ Comfort Measures: Not Applicable - Core Measures Any of the following diagnoses?: none Exam - Constitutional Vitals: Temp Pulse Resp BP Pulse Ox 98.6 F 95 H 16 180/80 98 12/20/19 08:57 12/20/19 10:19 12/20/19 08:57 12/20/19 08:57 12/20/19 08:57 General appearance: Present: no acute distress, well-nourished - EENT Eyes: Present: PERRL ENT: hearing intact, clear oral mucosa - Neck Neck: Present: supple, normal ROM - Respiratory Respiratory effort: normal Respiratory: bilateral: CTA - Cardiovascular Heart Sounds: Present: S1 & S2. Absent: rub, click - Extremities Extremities: pulses symmetrical, No edema Peripheral Pulses: within normal limits - Abdominal General gastrointestinal: Present: soft, non-tender, non-distended, normal bowel sounds Male genitourinary: Present: normal - Integumentary Integumentary: Present: clear, warm, dry - Musculoskeletal Musculoskeletal: strength equal bilaterally, other (Vas-Cath site looks excellent in clavicle area. No evidence of infection.) - Psychiatric Psychiatric: appropriate mood/affect, intact judgment & insight - Neurologic Neurologic: CNII-XII intact, moves all extremities Plan Diet: low protein, renal Special Instructions: restrict fluid intake to (3l) Follow up with: BERTIN JEFFRIES MD [Staff Physician] - 14 Days PRIMARY CARE, [Primary Care Provider] - 7 Days Prescriptions: amLODIPine 10 mg PO DAILY #30 Gabapentin 100 mg PO Q8HR #90 cap oxyCODONE /ACETAMINOPHEN [Percocet 5/325 mg] 1 tab PO Q6H PRN #20 tablet PRN Reason: Pain, Moderate (4-6)
[2019-12-20 19:23] VITALS: BP 158/83
== END 2019-12-20 19:00 | disposition home or self-care (01) | DRG 264 ==
LOC: ED 13:36 → 4A 19:07 → OBSVTOIN 12-16 14:00
PROVIDERS: ADMIT Internal Medicine; ATTEND Internal Medicine
PROC: 03170ZD Bypass Right Brachial Artery to Upper Arm Vein, Open Approach (ICD-10-PCS; principal; 2019-12-16)
PROC: 5A1D70Z Performance of Urinary Filtration, Intermittent, Less than 6 Hours Per Day (ICD-10-PCS; 2019-12-16)
PROC: 0JH63XZ Insertion of Tunneled Vascular Access Device into Chest Subcutaneous Tissue and Fascia, Percutaneous Approach (ICD-10-PCS; 2019-12-16)
PROC: 02H633Z Insertion of Infusion Device into Right Atrium, Percutaneous Approach (ICD-10-PCS; 2019-12-16)
PROC: B5181ZA Fluoroscopy of Superior Vena Cava using Low Osmolar Contrast, Guidance (ICD-10-PCS; 2019-12-16)
PROC: B548ZZA Ultrasonography of Superior Vena Cava, Guidance (ICD-10-PCS; 2019-12-16)
PROC: 5A1D70Z Performance of Urinary Filtration, Intermittent, Less than 6 Hours Per Day (ICD-10-PCS; 2019-12-17)
PROC: 5A1D70Z Performance of Urinary Filtration, Intermittent, Less than 6 Hours Per Day (ICD-10-PCS; 2019-12-20)
DX: I13.2 Hypertensive heart and chronic kidney disease with heart failure and with stage 5 chronic kidney disease, or end stage renal disease (principal); N18.6 End stage renal disease; I50.33 Acute on chronic diastolic (congestive) heart failure; E87.2 Acidosis; E87.1 Hypo-osmolality and hyponatremia; Z20.828 Contact with and (suspected) exposure to other viral communicable diseases; D63.1 Anemia in chronic kidney disease; K21.9 Gastro-esophageal reflux disease without esophagitis; E11.22 Type 2 diabetes mellitus with diabetic chronic kidney disease; G43.909 Migraine, unspecified, not intractable, without status migrainosus; N25.81 Secondary hyperparathyroidism of renal origin; E83.89 Other disorders of mineral metabolism; Z87.891 Personal history of nicotine dependence; Z79.899 Other long term (current) drug therapy
CPT/HCPCS: 36415; 36558; 71045; 71046; 76937; 77001; 80048; 80053; 80074; 82962; 83036; 83970; 84100; 85025; 85027; 93005; 93306; 96365; 96375; 99406; G0378; A4649; C1750; C1768; J1100; J1170; J1644; J1940; J2250; J2370; J2405; J2704; J2720; J3010; J7030; J7050; U0003

== ENCOUNTER 2020-04-28 09:20 | Observation (INO) | payer MEDICARE ==
[2020-04-28] MEDS ORDERED: fentaNYL 100 MCG/2 ML INJ IV ONE ×2 (09:55→11:14)
[2020-04-28] MEDS ORDERED: ONDANSETRON 4 MG/2 ML INJ IV ONE (09:55)
--- NOTE | 2020-04-28 10:11 | Emergency Department Report ---
HPI - General Chief Complaint: Chest Pain Time Seen by Provider: 04/28/20 09:41 - HPI HPI: Room 42 The patient is a 45-year-old male present with a chief complaint of chest pain. Patient states he began having left-sided chest pain and then substernal chest pain last night at 20: 00. Patient states the pain worsens with inspiration. Patient admits to shortness of breath and diaphoresis with this pain but denies nausea or vomiting. Patient denies cough or fever. Patient denies preceding trauma. The patient gives his pain a score of 10/10. Patient states he is uncertain if he is ever had a stress test but denies ever having had a cardiac catheterization. The patient has a history of end-stage renal disease and states he was last dialyzed 04/26/2020 ED Past Medical Hx - Past Medical History Hx Hypertension: Yes Hx Diabetes: Yes Hx GERD: Yes Hx Renal Disease: Yes Hx Headaches / Migraines: Yes (Migraines) - Surgical History Additional Surgical History: Right upper extremity fistula - Family History Family history: no significant - Social History Smoking Status: Former Smoker (None since December 2019) Substance Use Type: Marijuana - Medications Home Medications: Home Medications Medication Instructions Recorded Confirmed Last Taken Type Acetaminophen [Acetaminophen TAB] 650 mg PO Q4H PRN tablet 12/20/19 Unknown Rx Famotidine [Pepcid] 20 mg PO QAM tablet 12/20/19 Unknown Rx Gabapentin 100 mg PO Q8HR #90 cap 12/20/19 Unknown Rx amLODIPine 10 mg PO DAILY #30 12/20/19 Unknown Rx oxyCODONE /ACETAMINOPHEN [Percocet 1 tab PO Q6H PRN #20 tablet 12/20/19 Unknown Rx 5/325 mg] ED Review of Systems ROS: Stated complaint: CHEST PAIN Other details as noted in HPI Constitutional: diaphoresis. denies: fever Eyes: denies: eye pain ENT: denies: throat pain Respiratory: shortness of breath Cardiovascular: chest pain Endocrine: no symptoms reported Gastrointestinal: denies: nausea, vomiting Skin: denies: rash Neurological: denies: headache Physical Exam - Physical Exam Vital Signs: Vital Signs 04/28/20 09:35 Temperature 98.0 F Pulse Rate 90 Respiratory 25 H Rate Blood Pressure 176/96 O2 Sat by Pulse 95 Oximetry Physical Exam: GENERAL: The patient is well-developed well-nourished male lying on stretcher appearing to be in mild discomfort. [] HEENT: Normocephalic. Atraumatic. Extraocular motions are intact. Patient has moist mucous membranes. NECK: Supple. Trachea midline CHEST/LUNGS: Clear to auscultation. There is no respiratory distress noted. HEART/CARDIOVASCULAR: Regular. There is no tachycardia. There is no gallop rub or murmur. ABDOMEN: Abdomen is soft, nontender. Patient has normal bowel sounds. There is no abdominal distention. SKIN: There is no rash. There is no edema. There is no diaphoresis. NEURO: The patient is awake, alert, and oriented. The patient is cooperative. The patient has no focal neurologic deficits. The patient has normal speech MUSCULOSKELETAL:There is no evidence of acute injury. ED Course Vital Signs 04/28/20 09:35 Temperature 98.0 F Pulse Rate 90 Respiratory 25 H Rate Blood Pressure 176/96 O2 Sat by Pulse 95 Oximetry - Consultations Consultation #1: 04/28/20 11:04 Nephrology paged 04/28/20 12:[address] Aguila- will arrange hemodialysis ED Medical Decision Making - Lab Data Result diagrams: 04/28/20 10:07 04/28/20 10:07 Laboratory Tests 04/28/20 04/28/20 04/28/20 10:07 10:07 10:07 WBC 13.0 H RBC 4.04 Hgb 11.3 L Hct 34.9 L MCV 86 MCH 28 MCHC 32 RDW 19.1 H Plt Count 325 Lymph % (Auto) 3.4 L [place] % (Auto) 9.0 H Eos % (Auto) 0.5 Baso % (Auto) 1.3 Lymph # (Auto) 0.4 L [place] # (Auto) 1.2 H Eos # (Auto) 0.1 Baso # (Auto) 0.2 H Seg Neutrophils % 85.8 H Seg Neutrophils # 11.1 H PT 12.5 INR 0.95 APTT 28.1 D-Dimer 1312.21 H Sodium 134 L Potassium 5.6 H Chloride 95.1 L Carbon Dioxide 22 Anion Gap 23 BUN 59 H Creatinine 10.9 H Estimated GFR 6 BUN/Creatinine Ratio 5 Glucose 154 H Calcium 8.3 L Total Creatine Kinase 90 CK-MB (CK-2) 5.4 H CK-MB (CK-2) Rel Index 6.0 H Troponin T 0.332 H* Triglycerides 58 Cholesterol 202 H LDL Cholesterol Direct 102 HDL Cholesterol 104 H Cholesterol/HDL Ratio 1.94 - EKG Data -: EKG Interpreted by Me EKG shows normal: sinus rhythm Rate: normal - EKG Data When compared to previous EKG there are: previous EKG unavailable Interpretation: other (No ischemic changes seen) - Radiology Data Radiology results: report reviewed (Chest x-ray, VQ scan), image reviewed (Chest x-ray, VQ scan) interpreted by me: Chest x-ray-right lower lobe atelectasis. No pneumothorax. No foreign body seen - Differential Diagnosis ACS, PE, pericarditis, GERD, pneumonia Critical care attestation.: If time is entered above; I have spent that time in minutes in the direct care of this critically ill patient, excluding procedure time. ED Disposition Clinical Impression: Chest pain, End stage renal disease, Hyperkalemia Disposition: OP ADMIT IP TO THIS HOSP Is pt being admited?: Yes Does the pt Need Aspirin: Yes Condition: Fair Instructions: Chest Pain (ED) Referrals: PRIMARY CARE,MD [Primary Care Provider] - 3-5 Days Time of Disposition: 12:55 (Hospitalist paged (Dr. Ladd)) Heart Score - HEART Score History: Moderately suspicious EKG: Non-specific Age: 45-65 Risk factors: 1-2 risk factors Troponin: > 3x normal limit (ESRD) HEART Score: 6
[2020-04-28 10:30] LABS: Basophils # (Auto) 0.2 K/mm3 (0.0-0.1); Basophils % (Auto) 1.3 % (0.0-1.8); Eosinophils # (Auto) 0.1 K/mm3 (0.0-0.4); Eosinophils % (Auto) 0.5 % (0.0-4.3); Hematocrit 34.9 % (35.5-45.6); Hemoglobin 11.3 gm/dl (11.8-15.2); Lymphocytes # (Auto) 0.4 K/mm3 (1.2-5.4); Lymphocytes % (Auto) 3.4 % (13.4-35.0); Mean Corpuscular HGB Conc 32 % (32-34); Mean Corpuscular Volume 86 fl (84-94); Monocytes # (Auto) 1.2 K/mm3 (0.0-0.8); Platelet Count 325 K/mm3 (140-440); Red Blood Count 4.04 M/mm3 (3.65-5.03); Red Cell Distribution Width 19.1 % (13.2-15.2)
[2020-04-28 10:42] LABS: INR 0.95 (0.87-1.13)
[2020-04-28 10:43] LABS: Partial Thromboplastin Time 28.1 Sec. (24.2-36.6)
[2020-04-28 10:55] LABS: Calcium 8.3 mg/dL (8.4-10.2); Creatine Kinase MB 5.4 ng/mL (0.0-4.0)
--- NOTE | 2020-04-28 11:24 | XRay Report ---
CHEST 1 VIEW 04/28/2020 10:13 AM INDICATION / CLINICAL INFORMATION: chest pain. COMPARISON: 12/15/2019 FINDINGS: SUPPORT DEVICES: None. HEART / MEDIASTINUM: Stable. LUNGS / PLEURA: Interval development of bilateral pleural-parenchymal opacities in the lower lobes. O therwise minimally coarsened interstitial lung markings are similar. No pneumothorax. ADDITIONAL FINDINGS: No significant additional findings. IMPRESSION: 1. Interval development of small bilateral pleural effusions with associated lung base opacities whic h likely represent atelectasis. Clinical correlation rule out a superimposed infectious process is re commended. Signer Name: Gerson Choudhary MD Signed: 04/28/2020 11:20 AM Workstation Name: [id number] ([id number]
[2020-04-28 11:54] LABS: Chol/HDL Ratio 1.94 %
--- NOTE | 2020-04-28 12:42 | Nuclear Medicine Report ---
NM perfusion only lung scan INDICATION / CLINICAL INFORMATION: Chest pain, pleurisy. TRACER: Technetium 99m MAA 5.5 mCi IV injection. COMPARISON: Chest x-ray 04/28/2020. FINDINGS: No suspicious perfusion defect. Mild blunting at the bases corresponding to known pleural effusions. IMPRESSION: Negative for suspicious perfusion defect. Signer Name: Neo Aparicio MD Signed: 04/28/2020 12:36 PM Workstation Name: [id number]
--- NOTE | 2020-04-28 13:17 | History and Physical Report ---
History of Present Illness Chief complaint: It hurts when I breathe History of present illness: 45 YO Male with DM, GERD, Migraine SCHMID, ESRD on HD(M,W,F) presents to ED for evaluation. Patient reports "it hurts when I breathing". Patient states that he experienced sudden onset chest discomfort with deep breathing that began overnight at approximately 1200 hrs. patient presented to his routine dialysis center today for his scheduled dialysis session. Patient was found to have chest pain prior to dialysis. EMS was notified and upon arrival the patient was found to be in distress and subsequently transported to [facility] for further care and evaluation of the aforementioned symptoms. The patient was seen and evaluated in the emergency department. All lab and imaging studies reviewed. Patient found to have end-stage renal disease, fluid overload, as well as atypical chest pain. Patient underwent VQ scan which was not indicative of thromboembolic disease. Patient placed in observation status and admitted to medical floor due to increased risk of worsening symptoms. Patient denies fever, chills, chest pain, palpitations, productive cough, skin rash, recent ill contacts, or known exposure to COVID-19. Prior admission on 12/16/2019 reviewed. Echocardiogram reviewed. All medication listed at time of admission has been reconciled. Past History Past Medical History: diabetes, ESRD, GERD, migraines Past Surgical History: Other Social history: single Family history: diabetes, hypertension Medications and Allergies Allergies Allergy/AdvReac Type Severity Reaction Status Date / Time No Known Allergies Allergy Unverified 12/14/19 11:41 Home Medications Medication Instructions Recorded Confirmed Last Taken Type Acetaminophen [Acetaminophen TAB] 650 mg PO Q4H PRN tablet 12/20/19 Unknown Rx Famotidine [Pepcid] 20 mg PO QAM tablet 12/20/19 Unknown Rx Gabapentin 100 mg PO Q8HR #90 cap 12/20/19 Unknown Rx amLODIPine 10 mg PO DAILY #30 12/20/19 Unknown Rx oxyCODONE /ACETAMINOPHEN [Percocet 1 tab PO Q6H PRN #20 tablet 12/20/19 Unknown Rx 5/325 mg] Review of Systems Constitutional: no weight loss, no weight gain, no fever, no chills Ears, nose, mouth and throat: no ear pain, no ear discharge, no tinnitis, no nose pain, no nasal discharge, no sinus pressure Cardiovascular: no palpitations, no rapid/irregular heart beat, no syncope, no shortness of breath Respiratory: shortness of breath, pain on inspiration, no cough, no excessive sputum, no dyspnea on exertion Gastrointestinal: no abdominal pain, no nausea, no vomiting, no constipation, no change in bowel habits Genitourinary Male: no hematuria, no flank pain, no discharge, no urinary frequency, no urinary hesitancy Rectal: no pain, no incontinence, no bleeding Musculoskeletal: no neck stiffness, no neck pain, no shooting arm pain, no low back pain Integumentary: no rash, no redness, no sores, no jaundice Neurological: no head injury, no transient paralysis, no paralysis, no weakness, no numbness, no tingling, no syncope Psychiatric: no anxiety, no change in sleep habits, no sleep disturbances, no hypersomnia, no change in libido, no suicidal ideation Endocrine: no cold intolerance, no excessive thirst, no polydipsia, no polyuria, no nocturia, no excessive sweating Hematologic/Lymphatic: no easy bruising, no easy bleeding Allergic/Immunologic: no urticaria, no allergic rhinitis Exam - Constitutional Vitals: Temp Pulse Resp BP Pulse Ox 98.0 F 89 19 176/98 93 04/28/20 09:35 04/28/20 13:01 04/28/20 13:01 04/28/20 13:01 04/28/20 13:01 General appearance: Present: mild distress - EENT Eyes: Present: PERRL ENT: hearing intact, clear oral mucosa - Neck Neck: Present: supple, normal ROM - Respiratory Respiratory effort: normal Respiratory: bilateral: diminished, rhonchi - Cardiovascular Heart Sounds: Present: S1 & S2. Absent: rub, click - Extremities Extremities: pulses symmetrical, No edema Peripheral Pulses: within normal limits - Abdominal General gastrointestinal: Present: soft, non-tender, non-distended, normal bowel sounds Male genitourinary: Present: normal - Integumentary Integumentary: Present: clear, warm, dry - Musculoskeletal Musculoskeletal: gait normal, strength equal bilaterally - Psychiatric Psychiatric: appropriate mood/affect, intact judgment & insight - Neurologic Neurologic: CNII-XII intact, moves all extremities HEART Score - HEART Score EKG: Non-specific Age: 45-65 Risk factors: 1-2 risk factors Troponin: Troponin T 0.332 ng/mL (0.00-0.029) H* 04/28/20 10:07 Troponin: > 3x normal limit (ESRD) Results - Labs CBC & Chem 7: 04/28/20 10:07 04/28/20 10:07 Labs: Abnormal lab results 04/28/20 04/28/20 04/28/20 Range/Units 10:07 10:07 10:07 WBC 13.0 H (4.5-11.0) K/mm3 Hgb 11.3 L (11.8-15.2) gm/dl Hct 34.9 L (35.5-45.6) % RDW 19.1 H (13.2-15.2) % Lymph % (Auto) 3.4 L (13.4-35.0) % [place] % (Auto) 9.0 H (0.0-7.3) % Lymph # (Auto) 0.4 L (1.2-5.4) K/mm3 [place] # (Auto) 1.2 H (0.0-0.8) K/mm3 Baso # (Auto) 0.2 H (0.0-0.1) K/mm3 Seg Neutrophils % 85.8 H (40.0-70.0) % Seg Neutrophils # 11.1 H (1.8-7.7) K/mm3 D-Dimer 1312.21 H (0-234) ng/mlDDU Sodium 134 L (137-145) mmol/L Potassium 5.6 H (3.6-5.0) mmol/L Chloride 95.1 L (98-107) mmol/L BUN 59 H (9-20) mg/dL Creatinine 10.9 H (0.8-1.3) mg/dL Glucose 154 H (75-100) mg/dL Calcium 8.3 L (8.4-10.2) mg/dL CK-MB (CK-2) 5.4 H (0.0-4.0) ng/mL CK-MB (CK-2) Rel Index 6.0 H (0-4) Troponin T 0.332 H* (0.00-0.029) ng/mL Cholesterol 202 H (50-199) mg/dL HDL Cholesterol 104 H (40-59) mg/dL Assessment and Plan - Patient Problems (1) End stage renal disease Current Visit: Yes Status: Chronic Plan to address problem: Nephrology team consulted for dialysis, dialysis as per renal team, strict I's/O, monitor urine output every shift, daily weight, avoid nephrotoxic agents. (2) Atypical chest pain Current Visit: Yes Status: Acute Plan to address problem: EKG, and telemetry monitoring unremarkable. Suspect symptoms secondary to gastroesophageal reflux disease with concomitant fluid overload. VQ scan, D- dimer. (3) GERD (gastroesophageal reflux disease) Current Visit: Yes Status: Acute Qualifiers: Esophagitis presence: without esophagitis Qualified Code(s): K21.9 - Gastro-esophageal reflux disease without esophagitis Plan to address problem: PPI therapy, supportive care, outpatient GI follow-up (4) Hyperkalemia Current Visit: Yes Status: Acute Plan to address problem: Dialysis as per renal team, no EKG changes, supportive care. (5) Volume overload Current Visit: No Status: Acute Qualifiers: Hypervolemia type: unspecified Qualified Code(s): E87.70 - Fluid overload, unspecified Plan to address problem: Monitor fluid balance, strict I's/O, daily weight, dialysis as per renal team. (6) DVT prophylaxis Current Visit: Yes Status: Acute Plan to address problem: SCD to bilateral lower extremities while in bed, patient is ambulatory.
[2020-04-28] MEDS ORDERED: ONDANSETRON 4 MG/2 ML INJ IV PRN (13:26)
[2020-04-28] MEDS ORDERED: oxyCODONE /ACETAMINOPHEN 5-325MG TAB PO PRN (13:28)
[2020-04-28] MEDS ORDERED: ACETAMINOPHEN 325 MG TAB PO PRN (13:28)
[2020-04-28] MEDS ORDERED: SODIUM CHLORIDE 0.9% 100 ML IV PRN (13:39)
[2020-04-28] MEDS: GABAPENTIN 100 MG CAP PO SCH ×2 (13:54→22:27)
[2020-04-28] MEDS: FAMOTIDINE 10 MG TAB PO SCH ×2 (13:55→22:27)
[2020-04-28 14:25] LABS: Hepatitis B Surface Antigen Non-Reactive (Negative); Hepatitis C Virus Antibody Non-Reactive (NonReactive)
[2020-04-28] MEDS ORDERED: hydrALAZINE 20 MG/1 ML INJ IV STA (15:27)
[2020-04-28] MEDS: ACETAMINOPHEN 325 MG TAB PO PRN (22:30)
[2020-04-28] MEDS ORDERED: hydrALAZINE 20 MG/1 ML INJ IV PRN (23:24)
[2020-04-29] MEDS: GABAPENTIN 100 MG CAP PO SCH (06:35)
[2020-04-29] MEDS: ACETAMINOPHEN 325 MG TAB PO PRN (06:35)
--- NOTE | 2020-04-29 08:54 | Progress Note ---
Assessment and Plan Assessment and plan: ESRD Chest pain GERD Hyperkalemia Volume overload Elevated D-dimer 04/29/2020. Cardiology consultation for chest pain. Continue hemodialysis per nephrology. Elevated D-dimer but VQ scan negative. Anticipate discharge in a.m. if cleared by cardiology. History Interval history: No new issues overnight Hospitalist Physical - Constitutional Vitals: Temp Pulse Resp BP Pulse Ox 98.8 F 102 H 16 181/95 93 04/29/20 04:43 04/29/20 04:43 04/29/20 04:43 04/29/20 04:43 04/29/20 04:43 General appearance: Present: mild distress - EENT Eyes: Present: PERRL, EOM intact ENT: hearing intact, clear oral mucosa, dentition normal - Neck Neck: Present: supple, normal ROM - Respiratory Respiratory effort: normal Respiratory: bilateral: CTA - Cardiovascular Rhythm: regular Heart Sounds: Present: S1 & S2. Absent: gallop, rub - Extremities Extremities: no ischemia, No edema, Full ROM - Abdominal General gastrointestinal: soft, non-tender, non-distended, normal bowel sounds - Integumentary Integumentary: Present: clear, warm, dry - Neurologic Neurologic: CNII-XII intact, moves all extremities HEART Score - HEART Score EKG: Non-specific Age: 45-65 Risk factors: 1-2 risk factors Troponin: Troponin T 0.332 ng/mL (0.00-0.029) H* 04/28/20 10:07 Troponin: > 3x normal limit (ESRD) Results - Labs CBC & Chem 7: 04/28/20 10:07 04/28/20 10:07 Labs: Laboratory Last Values WBC 13.0 K/mm3 (4.5-11.0) H 04/28/20 10:07 RBC 4.04 M/mm3 (3.65-5.03) 04/28/20 10:07 Hgb 11.3 gm/dl (11.8-15.2) L 04/28/20 10:07 Hct 34.9 % (35.5-45.6) L 04/28/20 10:07 MCV 86 fl (84-94) 04/28/20 10:07 MCH 28 pg (28-32) 04/28/20 10:07 MCHC 32 % (32-34) 04/28/20 10:07 RDW 19.1 % (13.2-15.2) H 04/28/20 10:07 Plt Count 325 K/mm3 (140-440) 04/28/20 10:07 Lymph % (Auto) 3.4 % (13.4-35.0) L 04/28/20 10:07 [place] % (Auto) 9.0 % (0.0-7.3) H 04/28/20 10:07 Eos % (Auto) 0.5 % (0.0-4.3) 04/28/20 10:07 Baso % (Auto) 1.3 % (0.0-1.8) 04/28/20 10:07 Lymph # (Auto) 0.4 K/mm3 (1.2-5.4) L 04/28/20 10:07 [place] # (Auto) 1.2 K/mm3 (0.0-0.8) H 04/28/20 10:07 Eos # (Auto) 0.1 K/mm3 (0.0-0.4) 04/28/20 10:07 Baso # (Auto) 0.2 K/mm3 (0.0-0.1) H 04/28/20 10:07 Seg Neutrophils % 85.8 % (40.0-70.0) H 04/28/20 10:07 Seg Neutrophils # 11.1 K/mm3 (1.8-7.7) H 04/28/20 10:07 PT 12.5 Sec. (12.2-14.9) 04/28/20 10:07 INR 0.95 (0.87-1.13) 04/28/20 10:07 APTT 28.1 Sec. (24.2-36.6) 04/28/20 10:07 D-Dimer 1312.21 ng/mlDDU (0-234) H 04/28/20 10:07 Sodium 134 mmol/L (137-145) L 04/28/20 10:07 Potassium 5.6 mmol/L (3.6-5.0) H 04/28/20 10:07 Chloride 95.1 mmol/L (98-107) L 04/28/20 10:07 Carbon Dioxide 22 mmol/L (22-30) 04/28/20 10:07 Anion Gap 23 mmol/L 04/28/20 10:07 BUN 59 mg/dL (9-20) H 04/28/20 10:07 Creatinine 10.9 mg/dL (0.8-1.3) H 04/28/20 10:07 Estimated GFR 6 ml/min 04/28/20 10:07 BUN/Creatinine Ratio 5 % 04/28/20 10:07 Glucose 154 mg/dL (75-100) H 04/28/20 10:07 Calcium 8.3 mg/dL (8.4-10.2) L 04/28/20 10:07 Total Creatine Kinase 90 units/L (55-170) 04/28/20 10:07 CK-MB (CK-2) 5.4 ng/mL (0.0-4.0) H 04/28/20 10:07 CK-MB (CK-2) Rel Index 6.0 (0-4) H 04/28/20 10:07 Troponin T 0.332 ng/mL (0.00-0.029) H* 04/28/20 10:07 Triglycerides 58 mg/dL (2-149) 04/28/20 10:07 Cholesterol 202 mg/dL (50-199) H 04/28/20 10:07 LDL Cholesterol Direct 102 mg/dL (50-130) 04/28/20 10:07 HDL Cholesterol 104 mg/dL (40-59) H 04/28/20 10:07 Cholesterol/HDL Ratio 1.94 % 04/28/20 10:07 Hepatitis A IgM Ab Non-reactive (NonReactive) 04/28/20 13:47 Hep Bs Antigen Non-reactive (Negative) 04/28/20 13:47 Hep B Core IgM Ab Non-reactive (NonReactive) 04/28/20 13:47 Hepatitis C Antibody Non-reactive (NonReactive) 04/28/20 13:47 Dee/IV: Voiding Method Toilet Active Medications - Current Medications Current Medications: Generic Name Dose Route Start Last Admin Trade Name Freq PRN Reason Stop Dose Admin Acetaminophen 650 mg 04/28/20 13:26 04/29/20 06:35 Acetaminophen 325 Mg Tab PO 650 mg Q4H PRN Administration Pain MILD(1-3)/Fever >100.5/SCHMID Amlodipine Besylate 10 mg 04/29/20 10:00 Amlodipine 10 Mg Tab PO DAILY GARY Famotidine 10 mg 04/28/20 13:26 04/28/20 22:27 Famotidine 10 Mg Tab PO 10 mg BID GARY Administration Gabapentin 100 mg 04/28/20 14:00 04/29/20 06:35 Gabapentin 100 Mg Cap PO 100 mg Q8HR GARY Administration Hydralazine HCl 10 mg 04/28/20 23:24 04/29/20 00:01 Hydralazine 20 Mg/1 Ml Inj IV 10 mg Q6H PRN Administration Blood Pressure Sodium Chloride 100 mls @ 999 mls/hr 04/28/20 13:39 Nacl 0.9% IV TATIANNA PRN Hypotension Ondansetron HCl 4 mg 04/28/20 13:26 Ondansetron 4 Mg/2 Ml Inj IV Q8H PRN Nausea And Vomiting Oxycodone/Acetaminophen 1 tab 04/28/20 13:28 Oxycodone /Acetaminophen 5-325mg Tab PO Q6H PRN Pain, Moderate (4-6) Sodium Chloride 10 ml 04/28/20 22:00 04/28/20 22:27 Sodium Chloride 0.9% 10 Ml Flush Syringe IV 10 ml BID GARY Administration Sodium Chloride 10 ml 04/28/20 13:26 Sodium Chloride 0.9% 10 Ml Flush Syringe IV PRN PRN LINE FLUSH
[2020-04-29] MEDS ORDERED: amLODIPine 10 MG TAB PO SCH (10:00)
--- NOTE | 2020-04-29 10:27 | Consultation ---
History of Present Illness Consult date: 04/29/20 Consult reason: chest pain History of present illness: 45-year-old male with a history of diabetes mellitus end-stage renal disease presenting with sharp precordial chest pain precipitated by deep inspiration and breathing. Denies any fever chills consult requested due to patient's chest pain. Past History Past Medical History: diabetes, ESRD, GERD, migraines Past Surgical History: Other Social history: single Family history: diabetes, hypertension Medications and Allergies Allergies Allergy/AdvReac Type Severity Reaction Status Date / Time No Known Allergies Allergy Unverified 12/14/19 11:41 Home Medications Medication Instructions Recorded Confirmed Last Taken Type Acetaminophen [Acetaminophen TAB] 650 mg PO Q4H PRN tablet 12/20/19 Unknown Rx Famotidine [Pepcid] 20 mg PO QAM tablet 12/20/19 Unknown Rx Gabapentin 100 mg PO Q8HR #90 cap 12/20/19 Unknown Rx amLODIPine 10 mg PO DAILY #30 12/20/19 Unknown Rx oxyCODONE /ACETAMINOPHEN [Percocet 1 tab PO Q6H PRN #20 tablet 12/20/19 Unknown Rx 5/325 mg] Active Meds: Active Medications Acetaminophen (Acetaminophen 325 Mg Tab) 650 mg PO Q4H PRN PRN Reason: Pain MILD(1-3)/Fever >100.5/SCHMID Last Admin: 04/29/20 06:35 Dose: 650 mg Documented by: Amlodipine Besylate (Amlodipine 10 Mg Tab) 10 mg PO DAILY [facility] Famotidine (Famotidine 10 Mg Tab) 10 mg PO BID [facility] Last Admin: 04/28/20 22:27 Dose: 10 mg Documented by: Gabapentin (Gabapentin 100 Mg Cap) 100 mg PO Q8HR [facility] Last Admin: 04/29/20 06:35 Dose: 100 mg Documented by: Hydralazine HCl (Hydralazine 20 Mg/1 Ml Inj) 10 mg IV Q6H PRN PRN Reason: Blood Pressure Last Admin: 04/29/20 00:01 Dose: 10 mg Documented by: Sodium Chloride (Nacl 0.9%) 100 mls @ 999 mls/hr IV TATIANNA PRN PRN Reason: Hypotension Ondansetron HCl (Ondansetron 4 Mg/2 Ml Inj) 4 mg IV Q8H PRN PRN Reason: Nausea And Vomiting Oxycodone/Acetaminophen (Oxycodone /Acetaminophen 5-325mg Tab) 1 tab PO Q6H PRN PRN Reason: Pain, Moderate (4-6) Sodium Chloride (Sodium Chloride 0.9% 10 Ml Flush Syringe) 10 ml IV BID GARY Last Admin: 04/28/20 22:27 Dose: 10 ml Documented by: Sodium Chloride (Sodium Chloride 0.9% 10 Ml Flush Syringe) 10 ml IV PRN PRN PRN Reason: LINE FLUSH Review of Systems All systems: negative Cardiovascular: chest pain Respiratory: shortness of breath Physical Examination Vital Signs Temp Pulse Resp BP Pulse Ox 98.0 F 90 25 H 176/96 95 04/28/20 09:35 04/28/20 09:35 04/28/20 09:35 04/28/20 09:35 04/28/20 09:35 General appearance: no acute distress, well-nourished HEENT: Positive: PERRL, Mucus Membranes Moist Neck: Positive: neck supple, trachea midline Cardiac: Positive: Reg Rate and Rhythm, S1/S2. Negative: Audible Murmur Lungs: Positive: clear to auscultation, Normal Breath Sounds Neuro: Positive: Grossly Intact Abdomen: Positive: Soft, Active Bowel Sounds. Negative: Tender, Distended Extremities: Present: normal. Absent: edema Results 04/28/20 10:07 04/28/20 10:07 Cardiac Enzymes 04/28/20 Range/Units 10:07 CK-MB (CK-2) 5.4 H (0.0-4.0) ng/mL Coagulation 04/28/20 Range/Units 10:07 PT 12.5 (12.2-14.9) Sec. INR 0.95 (0.87-1.13) APTT 28.1 (24.2-36.6) Sec. Lipids 04/28/20 Range/Units 10:07 Triglycerides 58 (2-149) mg/dL Cholesterol 202 H (50-199) mg/dL HDL Cholesterol 104 H (40-59) mg/dL Cholesterol/HDL Ratio 1.94 % CBC 04/28/20 Range/Units 10:07 WBC 13.0 H (4.5-11.0) K/mm3 RBC 4.04 (3.65-5.03) M/mm3 Hgb 11.3 L (11.8-15.2) gm/dl Hct 34.9 L (35.5-45.6) % Plt Count 325 (140-440) K/mm3 Lymph # (Auto) 0.4 L (1.2-5.4) K/mm3 [place] # (Auto) 1.2 H (0.0-0.8) K/mm3 Eos # (Auto) 0.1 (0.0-0.4) K/mm3 Baso # (Auto) 0.2 H (0.0-0.1) K/mm3 Comprehensive Metabolic Panel 04/28/20 Range/Units 10:07 Sodium 134 L (137-145) mmol/L Potassium 5.6 H (3.6-5.0) mmol/L Chloride 95.1 L (98-107) mmol/L Carbon Dioxide 22 (22-30) mmol/L BUN 59 H (9-20) mg/dL Creatinine 10.9 H (0.8-1.3) mg/dL Glucose 154 H (75-100) mg/dL Calcium 8.3 L (8.4-10.2) mg/dL EKG interpretations - Telemetry EKG Rhythm: Sinus Rhythm Assessment and Plan Chest x-ray shows mild pulmonary vascular congestion with no infiltrates. P ulmonary ventilation/perfusion scan images are negative for pulmonary edema despite elevated serum D-dimer levels. Impression. 1. Atypical chest pain probably pleuritic 2. End-stage renal disease on hemodialysis 3. Nonspecific elevation of serum troponin levels in the setting of renal failure 4. Type 2 diabetes mellitus 5. Essential hypertension Plan. Currently stable will recommend an echocardiogram to assess global and regional left ventricular function as well as rule out pericardial disease myocardial perfusion scan imaging to rule out ischemic coronary artery disease
[2020-04-29] MEDS: FAMOTIDINE 10 MG TAB PO SCH (10:57)
--- NOTE | 2020-04-29 11:24 | Consultation ---
History of Present Illness - History of Present Illness Thank you for the consultation Patient was evaluated today My assessment and plan are as follows #End-stage renal disease: Patient is currently on Friday schedule at [facility], where he is receiving dialysis for approximately 3 hours. Urinalysis was ordered as of yesterday for mild hyperkalemia and patient needed hemodialysis Hemodialysis nurse to ultrafiltrate as tolerated, systolic blood pressure must be kept above 100, heart rate below 100 Patient was briefly evaluated in the ER yesterday dialysis was ordered already which he received #Electrolyte and volume: To monitor and follow #Abnormal cardiac enzyme troponin was 0.332 has had some nonspecific chest pain currently being followed by cardiology #Dialysis Access: Working well no issues per patient #Anemia in end-stage renal disease to monitor hemoglobin and hematocrit periodically erythropoietin as needed, #Bone mineral disorder and secondary hyperparathyroidism: Monitor phosphorus and PTH level periodically, #Diet and nutrition: Patient advised to maintain 1200 cc fluid restriction needs to be on protein: 1.5 g/kg body weight daily, supplement should be considered Current lab results were explained to the patient at length in simple Yi and patient does have clear understanding All dialysis-related questions have been answered to the patient More than 35 minutes were spent in direct patient care today at the bedside, If there are any further question in regard to this patient's renal care please call at [phone] Author: Bret Aguila M.D. [facility], [address] [place] [address] Tel; [phone] Source of information: From patient and the current chart History of present illness Patient is very pleasant third 45-year-old -[place] male who is being admitted here for evaluation of chest pain also due for dialysis currently being dialyzed at [facility] on Friday schedule for 3 hours he does have currently a working access. Upon this admission his potassium has been noted to be 5.6 his BUN 59 creatinine is 10.9 troponin was 0.332. His hemoglobin was normal at 11.3 he also suffers from gastroesophageal reflux disorder Workup is in progress for chest pain Has had cardiology evaluation as well Past medical history: Reviewed from the chart Current allergies: Reviewed from the current chart Social history: Reviewed from the current chart Family history: Reviewed from the current chart Review of system: Positive for chest pain All other review of systems negative Physical examination Vitals: Reviewed General: No acute distress HEENT: Oral mucosa moist no pallor or icterus Neck: Supple without any JVD thyromegaly or nodular mass Chest: Clear to auscultation Heart: Regular rate and rhythm S1-S2 heard no S3-S4 Abdomen: Soft nontender, bowel sounds present no renal bruit no suprapubic masses no CVA tenderness noted Extremity: Minimal edema dry skin no peripheral cyanosis Endocrine: Thyroid not enlarged Psychiatric: No agitation and aggression noted Musculoskeletal: No joint effusion noted Labs and x-rays: Reviewed from this admission Past History Past Medical History: diabetes, ESRD, GERD, migraines Past Surgical History: Other Social history: single Family history: diabetes, hypertension Medications and Allergies Allergies Allergy/AdvReac Type Severity Reaction Status Date / Time No Known Allergies Allergy Unverified 12/14/19 11:41 Home Medications Medication Instructions Recorded Confirmed Last Taken Type Acetaminophen [Acetaminophen TAB] 650 mg PO Q4H PRN tablet 12/20/19 Unknown Rx Famotidine [Pepcid] 20 mg PO QAM tablet 12/20/19 Unknown Rx Gabapentin 100 mg PO Q8HR #90 cap 12/20/19 Unknown Rx amLODIPine 10 mg PO DAILY #30 12/20/19 Unknown Rx oxyCODONE /ACETAMINOPHEN [Percocet 1 tab PO Q6H PRN #20 tablet 12/20/19 Unknown Rx 5/325 mg] Active Meds: Active Medications Acetaminophen (Acetaminophen 325 Mg Tab) 650 mg PO Q4H PRN PRN Reason: Pain MILD(1-3)/Fever >100.5/SCHMID Last Admin: 04/29/20 06:35 Dose: 650 mg Documented by: Amlodipine Besylate (Amlodipine 10 Mg Tab) 10 mg PO DAILY [facility] Last Admin: 04/29/20 10:56 Dose: 10 mg Documented by: Famotidine (Famotidine 10 Mg Tab) 10 mg PO BID [facility] Last Admin: 04/29/20 10:57 Dose: 10 mg Documented by: Gabapentin (Gabapentin 100 Mg Cap) 100 mg PO Q8HR [facility] Last Admin: 04/29/20 06:35 Dose: 100 mg Documented by: Hydralazine HCl (Hydralazine 20 Mg/1 Ml Inj) 10 mg IV Q6H PRN PRN Reason: Blood Pressure Last Admin: 04/29/20 00:01 Dose: 10 mg Documented by: Sodium Chloride (Nacl 0.9%) 100 mls @ 999 mls/hr IV TATIANNA PRN PRN Reason: Hypotension Ondansetron HCl (Ondansetron 4 Mg/2 Ml Inj) 4 mg IV Q8H PRN PRN Reason: Nausea And Vomiting Oxycodone/Acetaminophen (Oxycodone /Acetaminophen 5-325mg Tab) 1 tab PO Q6H PRN PRN Reason: Pain, Moderate (4-6) Sodium Chloride (Sodium Chloride 0.9% 10 Ml Flush Syringe) 10 ml IV BID [facility] Last Admin: 04/29/20 10:57 Dose: 10 ml Documented by: Sodium Chloride (Sodium Chloride 0.9% 10 Ml Flush Syringe) 10 ml IV PRN PRN PRN Reason: LINE FLUSH Exam - Vital Signs Vital signs: Vital Signs Temp Pulse Resp BP Pulse Ox 98.0 F 90 25 H 176/96 95 04/28/20 09:35 04/28/20 09:35 04/28/20 09:35 04/28/20 09:35 04/28/20 09:35 Results - Lab Results 04/28/20 10:07 04/28/20 10:07 Most recent lab results Calcium 8.3 mg/dL (8.4-10.2) L 04/28/20 10:07
[2020-04-29 13:01] VITALS: BP 176/90
--- NOTE | 2020-04-30 09:09 | Discharge Summary ---
Providers - Providers Date of Admission: 04/28/20 13:26 Date of discharge: 04/29/20 Attending physician: MATA OSBORNE 04/28/20 12:42 Consult to Physician [CONS] Urgent Comment: Consulting Provider: ALEXANDRA CHUN Physician Instructions: Reason For Exam: ESRD needing dialysis 04/29/20 08:51 Consult to Physician [CONS] Routine Comment: Consulting Provider: MATILDE MONTALVO Physician Instructions: Reason For Exam: cp Primary care physician: ADMINISTRATIVE SALES ASSISTANT Hospitalization Reason for admission: cp Condition: Fair Hospital course: 45-year-old male with a history of diabetes mellitus end-stage renal disease presenting with sharp precordial chest pain precipitated by deep inspiration and breathing. Denied any fever chills. Patient was admitted with diagnosis of chest pain and elevated troponin. Cardiology consult requested due to patient's chest pain. Chest x-ray shows mild pulmonary vascular congestion with no infiltrates. Pulmonary ventilation/perfusion scan images are negative for pulmonary edema despite elevated serum D-dimer levels. Cardiology felt that patient had Nonspecific elevation of serum troponin levels in the setting of renal failure. Cardiology recommended an echocardiogram to assess global and regional left ventricular function as well as rule out pericardial disease myocardial perfusion scan imaging to rule out ischemic coronary artery disease. However, patient left AMA. Dedicated discharge time 35 minutes Disposition: DC-07 LEFT AGAINST MED ADVICE Core Measure Documentation - Palliative Care Palliative Care/ Comfort Measures: Not Applicable - Core Measures Any of the following diagnoses?: none Exam - Constitutional Vitals: Temp Pulse Resp BP Pulse Ox 99.1 F 99 H 22 176/90 94 04/29/20 12:02 04/29/20 12:02 04/29/20 12:02 04/29/20 12:02 04/29/20 12:02 General appearance: Present: no acute distress, well-nourished - EENT Eyes: Present: PERRL ENT: hearing intact, clear oral mucosa - Neck Neck: Present: supple, normal ROM - Respiratory Respiratory effort: normal Respiratory: bilateral: CTA - Cardiovascular Heart Sounds: Present: S1 & S2. Absent: rub, click - Extremities Extremities: pulses symmetrical, No edema Peripheral Pulses: within normal limits - Abdominal General gastrointestinal: Present: soft, non-tender, non-distended, normal bowel sounds Male genitourinary: Present: normal - Integumentary Integumentary: Present: clear, warm, dry - Musculoskeletal Musculoskeletal: gait normal, strength equal bilaterally - Psychiatric Psychiatric: appropriate mood/affect, intact judgment & insight - Neurologic Neurologic: CNII-XII intact, moves all extremities Plan Follow up with: PRIMARY CARE, [Primary Care Provider] - 3-5 Days
== END 2020-04-29 14:10 | disposition left against medical advice (07) ==
LOC: ED 09:20 → 3A 13:26
PROVIDERS: ADMIT Internal Medicine; ATTEND Hospitalist
DX: R07.89 Other chest pain (principal); E87.70 Fluid overload, unspecified; I12.0 Hypertensive chronic kidney disease with stage 5 chronic kidney disease or end stage renal disease; N18.6 End stage renal disease; E11.22 Type 2 diabetes mellitus with diabetic chronic kidney disease; D63.1 Anemia in chronic kidney disease; K21.9 Gastro-esophageal reflux disease without esophagitis; E87.5 Hyperkalemia; G43.909 Migraine, unspecified, not intractable, without status migrainosus; R77.8 Other specified abnormalities of plasma proteins; Z98.890 Other specified postprocedural states; Z79.899 Other long term (current) drug therapy; Z99.2 Dependence on renal dialysis; Z87.891 Personal history of nicotine dependence
CPT/HCPCS: 36415; 71045; 78580; 80048; 80061; 80074; 82550; 82553; 84484; 85025; 85379; 85610; 85730; 93005; 96374; 96375; 96376; 99285; A9540; G0378; J0360; J2405; J3010

== ENCOUNTER 2020-05-08 16:44 | Emergency (ER) | payer MEDICARE ==
--- NOTE | 2020-05-08 17:07 | Event Note ---
ED Screening Note Date of service: 05/08/20 Time: 17:07 ED Screening Note: Patient was sent from the dialysis center due to abnormal labs and concern for jaundice This initial assessment/diagnostic orders/clinical plan/treatment(s) is/are subject to change based on patients health status, clinical progression and re- assessment by fellow clinical providers in the ED. Further treatment and workup at subsequent clinical providers discretion. Patient/guardian urged not to elope from the ED as their condition may be serious if not clinically assessed and managed. Initial orders include: Abdominal pain order set
--- NOTE | 2020-05-08 17:42 | Emergency Department Report ---
HPI - General Chief Complaint: Recheck/Abnormal Lab/Rx Time Seen by Provider: 05/08/20 17:26 - HPI HPI: Room 1 The patient is a 45-year-old male present with a chief complaint of jaundice and fatigue. The patient states he has had shortness of breath intermittently for the past 3 weeks. The patient states for the past several days he has felt fatigued and last night developed diarrhea. Today at hemodialysis the patient was told that his eyes were yellow and he states "they saw something in my lungs" and he was sent to the ED for further evaluation. When asked how he is feeling currently the patient states he just feels sleepy and has diarrhea. Patient denies any recent antibiotic use. Patient denies history of fever. ED Past Medical Hx - Past Medical History Previous Medical History?: Yes Hx Hypertension: Yes Hx Diabetes: Yes Hx GERD: Yes Hx Renal Disease: Yes Hx Headaches / Migraines: Yes (Migraines) - Surgical History Past Surgical History?: Yes Additional Surgical History: Right upper extremity fistula - Family History Family history: no significant - Social History Smoking Status: Current Some Day Smoker Substance Use Type: Alcohol (None x3 years), Marijuana - Medications Home Medications: Home Medications Medication Instructions Recorded Confirmed Last Taken Type Acetaminophen [Acetaminophen TAB] 650 mg PO Q4H PRN tablet 12/20/19 Unknown Rx Famotidine [Pepcid] 20 mg PO QAM tablet 12/20/19 Unknown Rx Gabapentin 100 mg PO Q8HR #90 cap 12/20/19 Unknown Rx amLODIPine 10 mg PO DAILY #30 12/20/19 Unknown Rx oxyCODONE /ACETAMINOPHEN [Percocet 1 tab PO Q6H PRN #20 tablet 12/20/19 Unknown Rx 5/325 mg] ED Review of Systems ROS: Stated complaint: LUNG Other details as noted in HPI Constitutional: denies: fever Eyes: other (Icteric sclera) ENT: denies: throat pain Respiratory: shortness of breath Cardiovascular: denies: chest pain Endocrine: no symptoms reported Gastrointestinal: diarrhea Genitourinary: denies: dysuria Neurological: headache Physical Exam - Physical Exam Vital Signs: Vital Signs 05/08/20 16:45 Temperature 98.7 F Pulse Rate 87 Respiratory 16 Rate Blood Pressure 167/91 O2 Sat by Pulse 100 Oximetry Physical Exam: GENERAL: The patient is well-developed well-nourished male lying on stretcher not appearing to be in acute distress. [] HEENT: Normocephalic. Atraumatic. Extraocular motions are intact. Slightly icteric sclera NECK: Supple. Trachea midline CHEST/LUNGS: Diminished at the bases bilaterally. There is no respiratory distress noted. HEART/CARDIOVASCULAR: Regular. There is no tachycardia. There is no gallop rub or murmur. ABDOMEN: Abdomen is soft, nontender. Patient has normal bowel sounds. There is no abdominal distention. SKIN: There is no rash. There is no edema. There is no diaphoresis. NEURO: The patient is awake, alert, and oriented. The patient is cooperative. The patient has no focal neurologic deficits. The patient has normal speech MUSCULOSKELETAL: There is no evidence of acute injury. ED Course Vital Signs 05/08/20 16:45 Temperature 98.7 F Pulse Rate 87 Respiratory 16 Rate Blood Pressure 167/91 O2 Sat by Pulse 100 Oximetry - Consultations Consultation #1: 05/08/20 17:38 Dr. Penny paged 05/08/20 18:[address] Penny-states patient was supposed to receive CMP and liver ultrasound as an outpatient however he was sent to the ED. Work-up does not reveal an indication for admission to the hospital the patient will be followed up tomorrow. Last 2 episodes of dialysis the dialyzer was yellow leading to this work-up ED Medical Decision Making - Lab Data Result diagrams: 05/08/20 17:37 05/08/20 17:37 Laboratory Tests 05/08/20 05/08/20 05/08/20 17:37 17:37 17:40 WBC 9.8 RBC 3.95 Hgb 11.1 L Hct 33.7 L MCV 85 MCH 28 MCHC 33 RDW 19.3 H Plt Count 530 H Add Manual Diff Complete Total Counted 100 Seg Neuts % (Manual) 72.0 H Lymphocytes % (Manual) 16.0 Monocytes % (Manual) 11.0 H Eosinophils % (Manual) 1.0 Nucleated RBC % Not Reportable Seg Neutrophils # Man 7.1 Band Neutrophils # 0.0 Lymphocytes # (Manual) 1.6 Abs React Lymphs (Man) 0.0 Monocytes # (Manual) 1.1 H Eosinophils # (Manual) 0.1 Basophils # (Manual) 0.0 Metamyelocytes # 0.0 Myelocytes # 0.0 Promyelocytes # 0.0 Blast Cells # 0.0 WBC Morphology Not Reportable Hypersegmented Neuts Not Reportable Hyposegmented Neuts Not Reportable Hypogranular Neuts Not Reportable Smudge Cells Not Reportable Toxic Granulation Not Reportable Toxic Vacuolation Not Reportable Dohle Bodies Not Reportable Pelger-Huet Anomaly Not Reportable Charmaine Rods Not Reportable Platelet Estimate Not Reportable Clumped Platelets Not Reportable Plt Clumps, EDTA Not Reportable Large Platelets Not Reportable Giant Platelets Not Reportable Platelet Satelliting Not Reportable Plt Morphology Comment Not Reportable RBC Morphology Not Reportable Dimorphic RBCs Not Reportable Polychromasia Not Reportable Hypochromasia Not Reportable Poikilocytosis Not Reportable Anisocytosis Rare Microcytosis Few Macrocytosis Not Reportable Spherocytes Not Reportable Pappenheimer Bodies Not Reportable Sickle Cells Not Reportable Target Cells Few Tear Drop Cells Not Reportable Ovalocytes Not Reportable Helmet Cells Not Reportable Graff-Ansted Bodies Not Reportable [place] Rings Not Reportable [place] Cells Not Reportable Bite Cells Not Reportable Crenated Cell Not Reportable Elliptocytes Not Reportable Acanthocytes (Spur) Not Reportable Rouleaux Not Reportable Hemoglobin C Crystals Not Reportable Schistocytes Not Reportable Malaria parasites Not Reportable Harshal Bodies Not Reportable Hem Pathologist Commnt No PT 12.5 INR 0.94 Sodium 134 L Potassium 3.7 Chloride 92.2 L Carbon Dioxide 32 H Anion Gap 14 BUN 21 H Creatinine 4.9 H Estimated GFR 16 BUN/Creatinine Ratio 4 Glucose 150 H Calcium 8.9 Total Bilirubin 3.60 H Direct Bilirubin 2.6 H Indirect Bilirubin 1.0 AST 70 H ALT 163 H Alkaline Phosphatase 535 H Total Protein 7.6 Albumin 3.7 L Albumin/Globulin Ratio 0.9 Lipase 28 - Radiology Data Radiology results: report reviewed (Chest x-ray, liver ultrasound), image re viewed (Chest x-ray, liver ultrasound) interpreted by me: Chest [id number] left hemidiaphragm. Left lower lobe haziness. No pneumothorax Patient: RODY OSBORNE JR MR #: [id number] : 1975 Acct:[id number] Age/Sex: 45 / M ADM Date: 05/08/20 Loc: ED Attending Dr: Ordering Physician: DAWIT VICK MD Date of Service: 05/08/20 Procedure(s): XR chest 1V ap Accession Number(s): [id number] cc: DAWIT VICK MD Fluoro Time In Minutes: CHEST 1 VIEW 05/08/2020 4:53 PM INDICATION / CLINICAL INFORMATION: Shortness of breath. COMPARISON: 04/28/2020 FINDINGS: SUPPORT DEVICES: None. HEART / MEDIASTINUM: Stable mild cardiomegaly. LUNGS / PLEURA: There are small right and moderate left pleural effusions. No pneumothorax. ADDITIONAL FINDINGS: No significant additional findings. IMPRESSION: 1. Small right and moderate left pleural effusions. Signer Name: Maurice Leo MD Signed: 05/08/2020 5:57 PM Workstation Name: [id number] Transcribed By: FLO Dictated By: Maurice Leo MD Electronically Authenticated By: Maurice Leo MD Signed Date/Time: 05/08/20 1757 Patient: RODY OSBORNE JR MR #: [id number] : 1975 Acct:[id number] Age/Sex: 45 / M ADM Date: 05/08/20 Loc: ED Attending Dr: Ordering Physician: DAWIT VICK MD Date of Service: 05/08/20 Procedure(s): US abdomen limited Accession Number(s): [id number] cc: DAWIT VICK MD ULTRASOUND ABDOMEN, LIMITED (RIGHT UPPER QUADRANT) INDICATION: Elevated AST and alk phos per nephrology. COMPARISON: None available. FINDINGS: Pancreas: Visualized portion shows no significant abnormality. Liver: Slightly enlarged Gallbladder: Contracted without obvious cholelithiasis Bile ducts: Normal. Common Bile Duct measures 2.2 mm. Free fluid: None. Additional Findings: Right pleural effusion is present. IMPRESSION: 1. Hepatomegaly, diffuse liver disease is concerned without evidence of focal lesion 2. Right pleural effusion Signer Name: Gold Adan MD Signed: 05/08/2020 8:18 PM Workstation Name: [id number] Transcribed By: SHAGGY Dictated By: Gold Adan MD Electronically Authenticated By: Gold Adan MD Signed Date/Time: 05/08/20 2018 - Differential Diagnosis Hepatitis, biliary obstruction, hemolysis, symptomatic anemia Critical care attestation.: If time is entered above; I have spent that time in minutes in the direct care of this critically ill patient, excluding procedure time. ED Disposition Clinical Impression: Hyperbilirubinemia, Jaundice Disposition: TO HOME OR SELFCARE Is pt being admited?: No Does the pt Need Aspirin: No Condition: Stable Instructions: Jaundice, Adult Additional Instructions: Return to the emergency department should you develop worsening symptoms, inability to tolerate food or liquids, high fever or any other concerns Referrals: PRIMARY CARE, [Primary Care Provider] - 3-5 Days ETHEL GUTIERREZ MD [Staff Physician] - 3-5 Days Time of Disposition: 20:40
[2020-05-08 17:52] LABS: Hematocrit 33.7 % (35.5-45.6); Hemoglobin 11.1 gm/dl (11.8-15.2); Mean Corpuscular HGB Conc 33 % (32-34); Mean Corpuscular Volume 85 fl (84-94); Platelet Count 530 K/mm3 (140-440); Red Blood Count 3.95 M/mm3 (3.65-5.03); Red Cell Distribution Width 19.3 % (13.2-15.2)
[2020-05-08 18:01] LABS: INR 0.94 (0.87-1.13)
--- NOTE | 2020-05-08 18:02 | XRay Report ---
CHEST 1 VIEW 05/08/2020 4:53 PM INDICATION / CLINICAL INFORMATION: Shortness of breath. COMPARISON: 04/28/2020 FINDINGS: SUPPORT DEVICES: None. HEART / MEDIASTINUM: Stable mild cardiomegaly. LUNGS / PLEURA: There are small right and moderate left pleural effusions. No pneumothorax. ADDITIONAL FINDINGS: No significant additional findings. IMPRESSION: 1. Small right and moderate left pleural effusions. Signer Name: Maurice Leo MD Signed: 05/08/2020 5:57 PM Workstation Name: [id number]
[2020-05-08 18:16] LABS: Albumin 3.7 g/dL (3.9-5); Bilirubin,Direct 2.6 mg/dL (0-0.2); Calcium 8.9 mg/dL (8.4-10.2)
[2020-05-08 18:56] LABS: Total Cells Counted 100
[2020-05-08 18:57] LABS: Anisocytosis RARE; Target Cells Few
[2020-05-08 20:16] VITALS: BP 165/87
--- NOTE | 2020-05-08 20:23 | Ultrasound Report ---
ULTRASOUND ABDOMEN, LIMITED (RIGHT UPPER QUADRANT) INDICATION: Elevated AST and alk phos per nephrology. COMPARISON: None available. FINDINGS: Pancreas: Visualized portion shows no significant abnormality. Liver: Slightly enlarged Gallbladder: Contracted without obvious cholelithiasis Bile ducts: Normal. Common Bile Duct measures 2.2 mm. Free fluid: None. Additional Findings: Right pleural effusion is present. IMPRESSION: 1. Hepatomegaly, diffuse liver disease is concerned without evidence of focal lesion 2. Right pleural effusion Signer Name: Gold Adan MD Signed: 05/08/2020 8:18 PM Workstation Name: [id number]
== END 2020-05-08 21:01 | disposition home or self-care (01) ==
LOC: ED 16:44
DX: R17 Unspecified jaundice (principal); E80.6 Other disorders of bilirubin metabolism; I10 Essential (primary) hypertension; E11.9 Type 2 diabetes mellitus without complications; K21.9 Gastro-esophageal reflux disease without esophagitis; G43.909 Migraine, unspecified, not intractable, without status migrainosus; F17.200 Nicotine dependence, unspecified, uncomplicated; F12.10 Cannabis abuse, uncomplicated; Z98.890 Other specified postprocedural states; Z79.899 Other long term (current) drug therapy
CPT/HCPCS: 36415; 71045; 76705; 80048; 80076; 83690; 85007; 85025; 85610

== ENCOUNTER 2020-10-02 12:12 | Inpatient (IN) | payer MEDICARE ==
--- NOTE | 2020-10-02 13:04 | Emergency Department Report ---
HPI - General Chief Complaint: Weakness Time Seen by Provider: 10/02/20 12:38 - HPI HPI: Room 4 The patient is a 45-year-old male present with a chief complaint of weakness. The patient states he missed hemodialysis on 09/29/2020 and since then he has felt fatigued and has had shortness of breath. The patient went to hemodialysis today and afterwards had an increase in his weakness diffusely. EMS was called and states the patient was difficult to arouse initially and desatted to 93% on room air when taken off of O2. The patient denies history of cough or fever. Patient states he has not been vaccinated for COVID-19. Patient denies pain nausea or vomiting. Patient states he just feels weak all over and has shortness of breath ED Past Medical Hx - Past Medical History Hx Hypertension: Yes Hx Diabetes: Yes Hx GERD: Yes Hx Renal Disease: Yes Hx Headaches / Migraines: Yes (Migraines) - Surgical History Additional Surgical History: Right upper extremity fistula - Family History Family history: no significant - Social History Smoking Status: Current Some Day Smoker Substance Use Type: None - Medications Home Medications: Home Medications Medication Instructions Recorded Confirmed Last Taken Type Acetaminophen [Acetaminophen TAB] 650 mg PO Q4H PRN tablet 12/20/19 Unknown Rx Famotidine [Pepcid] 20 mg PO QAM tablet 12/20/19 Unknown Rx Gabapentin 100 mg PO Q8HR #90 cap 12/20/19 Unknown Rx amLODIPine 10 mg PO DAILY #30 12/20/19 Unknown Rx oxyCODONE /ACETAMINOPHEN [Percocet 1 tab PO Q6H PRN #20 tablet 12/20/19 Unknown Rx 5/325 mg] ED Review of Systems ROS: Stated complaint: WEAKNESS/SOB Other details as noted in HPI Constitutional: weakness. denies: fever Eyes: denies: eye pain ENT: denies: throat pain Respiratory: shortness of breath. denies: cough Cardiovascular: denies: chest pain Endocrine: no symptoms reported Gastrointestinal: denies: nausea, vomiting Genitourinary: denies: testicular pain Musculoskeletal: denies: back pain Neurological: denies: headache Physical Exam - Physical Exam Physical Exam: GENERAL: The patient is well-developed well-nourished male lying on stretcher not appearing to be in acute distress. [] HEENT: Normocephalic. Atraumatic. Extraocular motions are intact. Patient has moist mucous membranes. NECK: Supple. Trachea midline CHEST/LUNGS: Clear to auscultation. There is no respiratory distress noted. HEART/CARDIOVASCULAR: Regular. There is no tachycardia. There is no gallop rub or murmur. ABDOMEN: Abdomen is soft, nontender. Patient has normal bowel sounds. There is no abdominal distention. SKIN: There is no rash. There is no edema. There is no diaphoresis. NEURO: The patient is awake, alert, and oriented. The patient is cooperative. The patient has no focal neurologic deficits. The patient has normal speech. GCS 15 MUSCULOSKELETAL: There is no evidence of acute injury. ED Course - Reevaluation(s) Reevaluation #1: 10/02/20 19:15 Patient is 2-minute room air walking SPO2 80%. Patient replaced on supplemental O2 with SPO2 increasing to 97%. Will admit the patient to the hospital ED Medical Decision Making - Lab Data Result diagrams: 10/02/20 13:10/02/20 13:09 Laboratory Tests 10/02/20 10/02/20 10/02/20 13:09 13:09 13:09 WBC 10.4 RBC 3.37 L Hgb 10.4 L Hct 30.8 L MCV 91 MCH 31 MCHC 34 RDW 14.0 Plt Count 386 Lymph % (Auto) 6.7 L [place] % (Auto) 11.4 H Eos % (Auto) 1.8 Baso % (Auto) 0.4 Lymph # (Auto) 0.7 L [place] # (Auto) 1.2 H Eos # (Auto) 0.2 Baso # (Auto) 0.0 Seg Neutrophils % 79.7 H Seg Neutrophils # 8.3 H D-Dimer 1726.31 H VBG pH Sodium 134 L Potassium 4.4 Chloride 91.2 L Carbon Dioxide 28 Anion Gap 19 BUN 27 H Creatinine 5.9 H Estimated GFR 13 BUN/Creatinine Ratio 5 Glucose 69 L Calcium 9.5 Total Bilirubin 0.50 AST 21 ALT 25 Alkaline Phosphatase 256 H Troponin T 0.234 H* Total Protein 8.3 H Albumin 4.4 Albumin/Globulin Ratio 1.1 Triglycerides 65 Cholesterol 184 LDL Cholesterol Direct 101 HDL Cholesterol 73 H Cholesterol/HDL Ratio 2.52 TSH Free T4 10/02/20 10/02/20 13:09 13:21 WBC RBC Hgb Hct MCV MCH MCHC RDW Plt Count Lymph % (Auto) [place] % (Auto) Eos % (Auto) Baso % (Auto) Lymph # (Auto) [place] # (Auto) Eos # (Auto) Baso # (Auto) Seg Neutrophils % Seg Neutrophils # D-Dimer VBG pH 7.396 Sodium Potassium Chloride Carbon Dioxide Anion Gap BUN Creatinine Estimated GFR BUN/Creatinine Ratio Glucose Calcium Total Bilirubin AST ALT Alkaline Phosphatase Troponin T Total Protein Albumin Albumin/Globulin Ratio Triglycerides Cholesterol LDL Cholesterol Direct HDL Cholesterol Cholesterol/HDL Ratio TSH 2.180 Free T4 1.54 H - EKG Data -: EKG Interpreted by Me EKG shows normal: sinus rhythm Rate: normal - EKG Data When compared to previous EKG there are: changes noted Interpretation: nonspecific ST-T wave volodymyr - Radiology Data Radiology results: pending (VQ scan), report reviewed (Chest x-ray), image rev iewed (Chest x-ray) interpreted by me: Chest x-ray- bilateral patchy infiltrates, right pleural effusion. No pneumothorax [facility] [address] [place] [address] XRay Report Signed Patient: RODY OSBORNE JR MR #: [id number] : 1975 Acct:[id number] Age/Sex: 45 / M ADM Date: 10/02/20 Loc: ED [address] Dr: Ordering Physician: DAWIT VICK MD Date of Service: 10/02/20 Procedure(s): XR chest 1V ap Accession Number(s): [id number] cc: DAWIT VICK MD Fluoro Time In Minutes: CHEST 1 VIEW 10/02/2020 12:48 PM INDICATION / CLINICAL INFORMATION: Shortness of breath. COMPARISON: 05/08/2020 FINDINGS: SUPPORT DEVICES: None. HEART / MEDIASTINUM: Stable mild cardiac megaly LUNGS / PLEURA: Moderate right pleural effusion and small left pleural effusion. Bilateral patchy airspace opacities, most pronounced in the left upper lobe. No pneumothorax. ADDITIONAL FINDINGS: No significant additional findings. IMPR ESSION: 1. Bilateral patchy airspace opacities, greatest in the left upper lobe. 2. Bilateral pleural effusions, right greater than left. Signer Name: Aaron Israel MD Signed: 10/02/2020 1:53 PM Workstation Name: [id number] Transcribed By: DB Dictated By: AARON ISRAEL MD Electronically Authenticated By: AARON ISRAEL MD Signed Date/Time: 10/02/20 1353 DD/ 1352 TD/TT: Print Cancel - Differential Diagnosis COVID-19, pneumonia, volume overload, symptomatic anemia Critical care attestation.: If time is entered above; I have spent that time in minutes in the direct care of this critically ill patient, excluding procedure time. ED Disposition Clinical Impression: Suspected COVID-19 virus infection, Hypoxia Disposition: OP ADMIT IP TO THIS HOSP Is pt being admited?: Yes Does the pt Need Aspirin: Yes Condition: Stable Referrals: PRIMARY CARE, [Primary Care Provider] - 3-5 Days Time of Disposition: 19:16 (Hospitalist paged (Dr. Ladd))
[2020-10-02 13:27] LABS: Basophils % (Auto) 0.4 % (0.0-1.8); Eosinophils # (Auto) 0.2 K/mm3 (0.0-0.4); Eosinophils % (Auto) 1.8 % (0.0-4.3); Hematocrit 30.8 % (35.5-45.6); Hemoglobin 10.4 gm/dl (11.8-15.2); Lymphocytes # (Auto) 0.7 K/mm3 (1.2-5.4); Lymphocytes % (Auto) 6.7 % (13.4-35.0); Mean Corpuscular HGB Conc 34 % (32-34); Mean Corpuscular Volume 91 fl (84-94); Monocytes # (Auto) 1.2 K/mm3 (0.0-0.8); Monocytes % (Auto) 11.4 % (0.0-7.3); Platelet Count 386 K/mm3 (140-440); Red Blood Count 3.37 M/mm3 (3.65-5.03)
[2020-10-02 13:52] LABS: Albumin 4.4 g/dL (3.9-5); Calcium 9.5 mg/dL (8.4-10.2)
--- NOTE | 2020-10-02 13:58 | XRay Report ---
CHEST 1 VIEW 10/02/2020 12:48 PM INDICATION / CLINICAL INFORMATION: Shortness of breath. COMPARISON: 05/08/2020 FINDINGS: SUPPORT DEVICES: None. HEART / MEDIASTINUM: Stable mild cardiac megaly LUNGS / PLEURA: Moderate right pleural effusion and small left pleural effusion. Bilateral patchy air space opacities, most pronounced in the left upper lobe. No pneumothorax. ADDITIONAL FINDINGS: No significant additional findings. IMPRESSION: 1. Bilateral patchy airspace opacities, greatest in the left upper lobe. 2. Bilateral pleural effusions, right greater than left. Signer Name: Aaron Israel MD Signed: 10/02/2020 1:53 PM Workstation Name: [email or web address]
[2020-10-02 14:02] LABS: Free T4 (Free Thyroxine) 1.54 ng/dL (0.76-1.46)
[2020-10-02 14:45] LABS: Chol/HDL Ratio 2.52 %
[2020-10-02 18:05] VITALS: BP 180/84
[2020-10-02] MEDS ORDERED: cefTRIAXone/NS 1 GM/50 ML 1 GM/50 ML BAG IV ONE (19:14)
[2020-10-02] MEDS ORDERED: AZITHROMYCIN/NS 500 MG/250 ML 500 MG/250 ML BAG IV ONE (19:14)
--- NOTE | 2020-10-02 19:17 | History and Physical Report ---
History of Present Illness Chief complaint: I feel weak History of present illness: 45 YO Male with DM, HTN, GERD, Migraine SCHMID, ESRD on HD(M,W,F), Nicotine Dependence presents to ED for evaluation. Patient reports "I feel weak ". Patient states that he experienced malaise, fatigue, muscle aches, generalized weakness, and shortness of breath over the past 5 days with worsening symptoms over the past 3 days with worsening symptoms over the same timeframe. EMS notified and upon arrival the patient was found to be in distress and subsequently transported to [facility] for further care and evaluation of the aforementioned symptoms. The patient was seen and evaluated in the emergency department. All lab and imaging studies reviewed. Patient found to have taken a pulse oximetry of 88% on room air which is consistent with acute hypoxemic respiratory failure. Chest x-ray revealed bilateral pneumonia. Patient admitt ed to medical floor and initiated on pneumonia protocol as well as coronavirus protocol. Nephrology team consulted in ED. Patient denies fever, chills, chest pain, palpitations, productive cough, skin rash, recent ill contacts, or known exposure to COVID-19. Prior admission on 05/08/2020 reviewed. All medication listed at time of admission has been reconciled. Past History Past Medical History: diabetes, ESRD, GERD, hypertension, migraines Past Surgical History: Other (Dialysis access) Social history: single. denies: smoking, alcohol abuse, prescription drug abuse Family history: diabetes, hypertension Medications and Allergies Allergies Allergy/AdvReac Type Severity Reaction Status Date / Time No Known Allergies Allergy Unverified 12/14/19 11:41 Home Medications Medication Instructions Recorded Confirmed Last Taken Type Acetaminophen [Acetaminophen TAB] 650 mg PO Q4H PRN tablet 12/20/19 Unknown Rx Famotidine [Pepcid] 20 mg PO QAM tablet 12/20/19 Unknown Rx Gabapentin 100 mg PO Q8HR #90 cap 12/20/19 Unknown Rx amLODIPine 10 mg PO DAILY #30 12/20/19 Unknown Rx oxyCODONE /ACETAMINOPHEN [Percocet 1 tab PO Q6H PRN #20 tablet 12/20/19 Unknown Rx 5/325 mg] Active Meds: Active Medications Azithromycin (Zithromax/Ns) 500 mg in 250 mls @ 250 mls/hr IV ONCE ONE; Protocol Stop: 10/02/20 20:13 Ceftriaxone Sodium (Rocephin/Ns 1 Gm/50 Ml) 1 gm in 50 mls @ 100 mls/hr IV ONCE ONE; Protocol Stop: 10/02/20 19:43 Review of Systems Constitutional: fever, weakness, malaise, lethargy, no weight loss, no weight gain, no chills Ears, nose, mouth and throat: no ear pain, no ear discharge, no tinnitis, no nose pain, no nasal discharge Cardiovascular: no chest pain, no orthopnea, no rapid/irregular heart beat, no edema, no syncope Respiratory: shortness of breath, no hemoptysis Gastrointestinal: no abdominal pain, no nausea, no diarrhea, no constipation Genitourinary Male: no hematuria, no flank pain, no discharge, no urinary hesitancy, no nocturia, no incontinence (Thank you) Rectal: no pain, no incontinence, no bleeding Musculoskeletal: no neck stiffness, no neck pain, no shooting leg pain Integumentary: no rash, no redness, no sores, no jaundice, no boils Neurological: no head injury, no transient paralysis, no paralysis, no weakness, no numbness, no tingling, no seizures, no syncope Psychiatric: no anxiety, no change in sleep habits, no insomnia, no hypersomnia, no change in appetite, no change in libido, no disorientation Endocrine: no cold intolerance, no polyphagia, no polydipsia, no nocturia, no flushing Hematologic/Lymphatic: no easy bruising, no easy bleeding Allergic/Immunologic: no allergic rhinitis, no wheezing Exam - Constitutional Vitals: Temp Pulse Resp BP Pulse Ox 97.5 F L 71 18 180/84 97 10/02/20 13:23 10/02/20 18:00 10/02/20 18:00 10/02/20 18:00 10/02/20 18:00 General appearance: Present: mild distress - EENT Eyes: Present: PERRL ENT: hearing intact, clear oral mucosa - Neck Neck: Present: supple, normal ROM - Respiratory Respiratory effort: labored Respiratory: bilateral: diminished, rhonchi - Cardiovascular Heart Sounds: Present: S1 & S2. Absent: rub, click - Extremities Extremities: pulses symmetrical, No edema Peripheral Pulses: within normal limits - Abdominal General gastrointestinal: Present: soft, non-tender, non-distended, normal bowel sounds Male genitourinary: Present: normal - Integumentary Integumentary: Present: clear, warm, dry - Musculoskeletal Musculoskeletal: gait normal, strength equal bilaterally - Psychiatric Psychiatric: appropriate mood/affect, intact judgment & insight - Neurologic Neurologic: CNII-XII intact, moves all extremities HEART Score - HEART Score Troponin: Troponin T 0.234 ng/mL (0.00-0.029) H* 10/02/20 13:09 Results - Labs CBC & Chem 7: 10/02/20 13:10/02/20 13:09 Labs: Abnormal lab results 10/02/20 10/02/20 10/02/20 Range/Units 13:09 13: 13:09 RBC 3.37 L (3.65-5.03) M/mm3 Hgb 10.4 L (11.8-15.2) gm/dl Hct 30.8 L (35.5-45.6) % Lymph % (Auto) 6.7 L (13.4-35.0) % [place] % (Auto) 11.4 H (0.0-7.3) % Lymph # (Auto) 0.7 L (1.2-5.4) K/mm3 [place] # (Auto) 1.2 H (0.0-0.8) K/mm3 Seg Neutrophils % 79.7 H (40.0-70.0) % Seg Neutrophils # 8.3 H (1.8-7.7) K/mm3 D-Dimer 1726.31 H (0-234) ng/mlDDU Sodium 134 L (137-145) mmol/L Chloride 91.2 L (98-107) mmol/L BUN 27 H (9-20) mg/dL Creatinine 5.9 H (0.8-1.3) mg/dL Glucose 69 L (75-100) mg/dL Alkaline Phosphatase 256 H (35-129) units/L Troponin T 0.234 H* (0.00-0.029) ng/mL Total Protein 8.3 H (6.3-8.2) g/dL HDL Cholesterol 73 H (40-59) mg/dL Free T4 (0.76-1.46) ng/dL 10/02/20 Range/Units 13:09 RBC (3.65-5.03) M/mm3 Hgb (11.8-15.2) gm/dl Hct (35.5-45.6) % Lymph % (Auto) (13.4-35.0) % [place] % (Auto) (0.0-7.3) % Lymph # (Auto) (1.2-5.4) K/mm3 [place] # (Auto) (0.0-0.8) K/mm3 Seg Neutrophils % (40.0-70.0) % Seg Neutrophils # (1.8-7.7) K/mm3 D-Dimer (0-234) ng/mlDDU Sodium (137-145) mmol/L Chloride (98-107) mmol/L BUN (9-20) mg/dL Creatinine (0.8-1.3) mg/dL Glucose (75-100) mg/dL Alkaline Phosphatase (35-129) units/L Troponin T (0.00-0.029) ng/mL Total Protein (6.3-8.2) g/dL HDL Cholesterol (40-59) mg/dL Free T4 1.54 H (0.76-1.46) ng/dL Assessment and Plan - Patient Problems (1) Acute hypoxemic respiratory failure Current Visit: Yes Status: Acute (2) Pneumonia Current Visit: Yes Status: Acute Plan to address problem: Chest x-ray, supplemental oxygen, pulse oximetry, nebulizer therapy, noninvasive positive pressure ventilation as clinically indicated. (3) Suspected COVID-19 virus infection Current Visit: Yes Status: Acute Plan to address problem: Coronavirus protocol: IV antibiotic therapy, IV steroid therapy, supplemental oxygen, pulse oximetry, noninvasive positive pressure ventilation as clinically indicated, prophylactic anticoagulation (4) GERD (gastroesophageal reflux disease) Current Visit: No Status: Acute Qualifiers: Esophagitis presence: without esophagitis Qualified Code(s): K21.9 - Gastro-esophageal reflux disease without esophagitis Plan to address problem: PPI therapy, supportive care (5) End stage renal disease Current Visit: No Status: Chronic Plan to address problem: Dialysis as per renal team, nephrology team consulted in ED, strict I's/O, monitor urine output every shift, avoid nephrotoxic agents (6) Hypertension Current Visit: No Status: Chronic Qualifiers: Hypertension type: primary hypertension Qualified Code(s): I10 - Essential (primary) hypertension Plan to address problem: Monitor blood pressure every shift, continue medical management IV hydralazine every 6 hours as needed for systolic blood pressure greater than or equal to 155 mmHg (7) DVT prophylaxis Current Visit: No Status: Acute Plan to address problem: SCD to bilateral lower extremities while in bed, prophylactic anticoagulation
[2020-10-02] MEDS ORDERED: HYDROmorphone 1 MG/1 ML INJ IV PRN (19:31)
[2020-10-02] MEDS ORDERED: ALBUTEROL 2.5 MG/3 ML NEBU IH PRN (19:31)
[2020-10-02] MEDS ORDERED: oxyCODONE /ACETAMINOPHEN 5-325MG TAB PO PRN (19:31)
[2020-10-02] MEDS ORDERED: ONDANSETRON 4 MG/2 ML INJ IV PRN (19:31)
[2020-10-02] MEDS ORDERED: ACETAMINOPHEN 325 MG TAB PO PRN (19:31)
[2020-10-02] MEDS ORDERED: hydrALAZINE 20 MG/1 ML INJ IV PRN (19:36)
[2020-10-02] MEDS ORDERED: methylPREDNISolone Sod Succinate 40 MG/1 ML INJ IV SCH (20:00)
[2020-10-02] MEDS ORDERED: ASCORBIC ACID 500 MG TAB PO SCH (22:00)
[2020-10-02] MEDS ORDERED: HEPARIN 5,000 UNIT/1 ML VIAL SUB-Q SCH (22:00)
[2020-10-02] MEDS ORDERED: ZINC SULFATE 220 MG CAP PO SCH (22:00)
[2020-10-02] MEDS ORDERED: GABAPENTIN 100 MG CAP PO SCH (22:00)
--- NOTE | 2020-10-03 08:28 | Nuclear Medicine Report ---
NUCLEAR MEDICINE PERFUSION LUNG SCAN INDICATION / CLINICAL INFORMATION: Shortness of breath. TECHNIQUE: 4.5 mCi of Tc-99m MAA were given by IV. COMPARISON: Chest radiograph dated 10/02/2020. FINDINGS: PERFUSION: No significant perfusion defects. ADDITIONAL FINDINGS: There is blunting of the costophrenic angles particularly on the right related t o pleural effusion seen on chest radiograph. IMPRESSION: 1. Low probability for pulmonary embolism. Signer Name: Abdirahman Izquierdo MD Signed: 10/02/2020 7:03 PM Workstation Name: [id number]
[2020-10-03] MEDS ORDERED: amLODIPine 10 MG TAB PO SCH (10:00)
[2020-10-03] MEDS ORDERED: CHOLECALCIFEROL (VIT D3) 1000 UNIT (25 mcg) TAB PO SCH (10:00)
[2020-10-03] MEDS ORDERED: FAMOTIDINE 20 MG TAB PO SCH (10:00)
--- NOTE | 2020-10-03 10:09 | Electrocardiograph Report ---
[facility] Test Date: 2020-10-02 Test Time: 13:09:58 Pat Name: RODY OSBORNE JR Department: Room: [facility] Gender: M Return To [employer] Clerk: ORTEGA : 1975 Requested By: DAWIT VICK Order Number: [id number] Reading MD: Gregory Chou Measurements Intervals [place] Rate: 71 P: 71 CO: 164 QRS: 81 QRSD: 85 T: -87 QT: 445 QTc: 483 Interpretive Statements Sinus rhythm Probable left atrial enlargement LVH with secondary repolarization abnormality nonspecific st-t No previous ECG available for comparison Electronically Signed On 10-03-2020 10:09:32 EDT by Gregory Chou
[2020-10-03] MEDS ORDERED: AZITHROMYCIN/NS 500 MG/250 ML 500 MG/250 ML BAG IV SCH (18:00)
[2020-10-03] MEDS ORDERED: cefTRIAXone/NS 2 GM/100 ML 2 GM/100 ML BAG IV SCH (18:00)
== END 2020-10-02 20:28 | disposition left against medical advice (07) | DRG 193 ==
LOC: ED 12:12 → 3A 19:31
PROVIDERS: ADMIT Internal Medicine; ATTEND Internal Medicine
DX: J18.9 Pneumonia, unspecified organism (principal); J96.00 Acute respiratory failure, unspecified whether with hypoxia or hypercapnia; N18.6 End stage renal disease; I12.0 Hypertensive chronic kidney disease with stage 5 chronic kidney disease or end stage renal disease; Z20.822 Contact with and (suspected) exposure to COVID-19; E11.22 Type 2 diabetes mellitus with diabetic chronic kidney disease; G43.909 Migraine, unspecified, not intractable, without status migrainosus; F17.200 Nicotine dependence, unspecified, uncomplicated; K21.9 Gastro-esophageal reflux disease without esophagitis; Z99.2 Dependence on renal dialysis; Z79.899 Other long term (current) drug therapy; Z83.3 Family history of diabetes mellitus; Z82.49 Family history of ischemic heart disease and other diseases of the circulatory system
CPT/HCPCS: 36415; 71045; 78580; 80053; 80061; 82805; 84439; 84443; 84484; 85025; 85379; 93005; G0378; A9540